=== PATIENT | female | born 1950 | race Caucasian/White ===

== ENCOUNTER 2024-10-02 11:02 | Outpatient (AMB) | payer MEDICARE, SELFPAY ==
--- NOTE | 2024-10-02 11:05 | MHC.OFFVIS ---
Vital Signs 10/02/24 11:13 Height 5 ft 2 in Weight 122 lb 8 oz BMI 22.4 BP 120/70 Blood Pressure Location Lt brachial Position Sitting Pulse 78 Pulse Source Pulse Oximeter Pulse Oximetry (%) 95 Oxygen Delivery Method Room Air Intake Visit Reasons: ENP-Parasomnia / Snoring ? sleep disorder Intake Note: Patient presents for a new patient evaluation for Parasomnia and snoring. Sexual Assault Social Worker Required: No Accompanied by: Spouse Allergies erythromycin base Allergy (Verified 10/02/24 11:12) Unknown Medication List - Last Reconciled 10/02/24 by Ced Coley PA-C albuterol sulfate 90 mcg/actuation (Ventolin HFA) 2 puffs inhalation Q6H PRN calcium carbonate-vitamin D3 600 mg-5 mcg (200 unit) (Calcium 600 + D(3)) 1 cap PO DAILY cholecalciferol (vitamin D3) 25 mcg PO DAILY HPI Comments Details: 73 year old female with history of abnormal sleep behaviors Abnormal sleep behavior she wakes up yelling at her , pommels him, punching, kicking behavior. He asks her to stop and she does, it is not related to disagreements. She has a good diet, exercises daily, meditates, Sees a medical therapist, [place] once a month. Denies any major stresses. March 2024, 33 year old nephew passed, tongue, neck, lungs, metatastic cancer, he was a nurse, she has been going to grief counseling. When she can't sleep she goes into the other room and does mindful exercises stretches in the middle of night, and then is able to fall asleep. RLS? PLMD? REM behavior, most likely. Buzzing, she stretches then they subside, +numbness and tingling. Bedtime is 10pm, and by midnight, and wakes up at 2am usually b/c the legs are uncomfortable and she wakes up kicking and thrashing. Snuggling helps her to fall asleep in his wing . Denies electric shock-like sensation, cramps or spasms. Does not take any medicine to sleep, including melatonin. Denies falls and injuries, sciatic. Osteoporosis has improved, per [employer]: was taking : risedronate- now she has Osteopenia. Arthritis. Sleep Study, in lab. Magnesium?/ B6 - Pyridine B12- Nerves/ Valerian? Acupuncture? PFSH Medical History Sessile colonic polyp Recurrent sinusitis Osteoporosis Hyperlipidemia History of shingles Diverticulosis large intestine w/o perforation or abscess w/bleeding Deviated septum Chondromalacia of right knee Benign positional vertigo Arthritis of right hand Surgical History S/P ACL repair Status post correction of deviated nasal septum H/O medial meniscus repair of right knee Family History Mother Breast cancer Social History Alcohol intake: current Patient Tobacco Use Status: Never used Tobacco Physical Exam Vital Signs: Last Vital Signs Pulse 78 10/02/24 11:13 BP 120/70 10/02/24 11:13 Pulse Ox 95 10/02/24 11:13 Oxygen Delivery Method Room Air 10/02/24 11:13 BMI result Body Mass Index 22.4 Const General: cooperative, comfortable and no acute distress Nutritional Appearance: average body habitus and thin Orientation/consciousness: patient oriented x3 Eyes Pupils: Equal, round and reactive pupils present Neck Neck: Yes other (ROM is good) Resp Effort & Inspection: normal respiratory effort and able to speak in complete sentences Neuro General: patient oriented x3 and moves all extremities Cranial nerves: Yes CN's II-XII intact bilaterally, Yes Facial sensation intact/muscles of mastication intact, Yes Equal, round and reactive pupils present, Yes Normal accommodation reflex present, Yes Bilaterally intact EOM present, Yes Nystagmus not present, Yes Normal facial strength present, Yes Midline tongue present, Yes Ability to bilaterally rotate head present and Yes Ability to bilaterally elevate shoulders present Cognition (Neuro): normal cognition Gait exam (Neuro): Normal gait present Motor exam (neuro): 5/5 motor strength present throughout, Pronator motor function not present, no tremor noted, Normal motor muscle tone present throughout and Abnormal motor strength present (RLE weaker than LLE) Deep tendon reflexes (DTR's): Right triceps reflex intensity grade: 2+, Left triceps reflex intensity grade: 2+, Rt Biceps (C5, C6): 2+, Left biceps reflex intensity grade: 2+, Right brachioradialis reflex intensity grade: 2+, Left brachioradialis reflex intensity grade: 2+, Right patellar reflex intensity grade: 2+, Left patellar reflex intensity grade: 2+, Right ankle reflex intensity grade: 2+ and Left ankle reflex intensity grade: 2+ Psych Appearance: grossly normal Mental Status: mental status grossly normal Speech and movement: Normal speech and movement present Affect: normal affect Attitude: cooperative Thought process: Normal thought process present Thought content: Normal thought content present Insight: Good insight present (Psych) Judgement: Good judgement present (Psych) Results Reviewed Results Reviewed: Notes from [facility] in [place] - Consultation from DR. Roe Burt Sep 2024 CBC normal MCV of 98 normal electrolytes, glucose 102, normal BUN and creatinine ca, alb, LFTS and TSH, per note. HLD Cholesterol is 257m /tri 172, HDL 49, LDL of 176 TSH was 2.85 Acyclovir / Valcyclovir PRN HSV 2 Assessment & Plan Assessment & Plan (1) Periodic limb movements of sleep: Code(s): G47.61 - Periodic limb movement disorder Category: Medical (2) RLS (restless legs syndrome): Code(s): G25.81 - Restless legs syndrome Category: Medical (3) Fatigue due to sleep pattern disturbance: Code(s): R53.83 - Other fatigue; G47.9 - Sleep disorder, unspecified Category: Medical Plan RLS - PLMD? In lab sleep study Labs: B12/ Folate / MMA/ Homocysteine/ Vit D- she takes every other / Iron? Magnesium? Abnormal Sleep patterns and excessive Daytime Fatigue: Continue taking vitamins, as prescribed, stretching, exercise daily and walking, will focus on nutritional deficiencies after in Lab sleep study. Future consideration: Acupuncture? Gabapentin, or Ropinorole next visit. F/U in 3 months. Orders: Orders RT PSG in-lab sleep study Today G25.81 - Restless legs syndrome, G47.61 - Periodic limb movement disorder, G47.9 - Sleep disorder, unspecified, R53.83 - Other fatigue Coding Level of Care Code New Pt Level 4 (82047) Diagnoses Periodic limb movements of sleep G47.61 RLS (restless legs syndrome) G25.81 Fatigue due to sleep pattern disturbance R53.83; G47.9 Time Spent (min) 45 Comment RLS/ PLMD/ Abnormal Sleep behavior Sleep Questionnaire Difficulty falling asleep: Yes Difficulty staying asleep?: Yes Number of arousals: varies 1-2x - multiple Snoring: Yes (loudly) Witnessed apneas: No Gasping arousals: No Nocturia: No GERD: No Vivid dreams: Yes Acting out dreams: Yes (Punching, kicking .) Abnormal behavior in sleep: Yes (Screaming loudly.) Abnormal movements in sleep: Yes (Denies ) Morning headaches: No Excessive daytime sleepiness: Yes Daytime naps: Yes (usually meditates and falls asleep 45min.) Restless legs: Yes (Buzzing, ) Hallucinations: Yes (Gargoyle like faces 2x.) Sleep paralysis: No Drop attacks: No Sleep Study: No CPAP: No
[2024-10-02 11:13] VITALS: BP 120/70; PULSE 78; O2SAT 95; BMI 22.4
--- OUTSIDE RECORDS SUMMARY | 2024-10-02 13:12 | XMS_ITS | Continuity of Care Document ---
Author Organization [facility] Address [address] [place] [address]- Care Team Providers Care Kiln Tester Name Role Phone Nas JAY, Chip Willis Primary Care Physician [id number] Date(s): 09/24/24 - 10/01/24 KE[facility] Adult [address] [place] [address]- Attending Physician: Roe Burt MD Encounter Type: Office Visit Allergies, Adverse Reactions, Alerts Substance Criticality Severity Reaction Reaction Severity Status erythromycin Active Immunizations Given and Recorded Vaccine Date Status Refusal Reason influenza virus vaccine, inactivated 07/18/24 Darren rded influenza virus vaccine, inactivated 06/12/23 Darren rded influenza virus vaccine, inactivated 06/08/21 Darren rded influenza virus vaccine, inactivated 06/13/19 Darren rded influenza virus vaccine, inactivated 06/14/18 Give n influenza virus vaccine, inactivated 06/18/17 Darren rded influenza virus vaccine, inactivated 06/27/16 Darren rded influenza virus vaccine, inactivated 09/05/09 Darren rded SARS-CoV-2(COVID-19)mRNA-LNP vac([id number]) 07/02/24 Recorded SARS-CoV-2(COVID-19)mRNA-LNP vac([id number]) 06/20/23 Recorded [id number] 12y+ bivalent booster vax 07/01/22 Recorded SARS-CoV-2 mRNA ([id number]) vax 01/04/22 Recorded SARS-CoV-2 (COVID-19) mRNA BNT-162b2 vac 06/15/21 Recorded SARS-CoV-2 (COVID-19) mRNA BNT-162b2 vac 12/05/20 Recorded SARS-CoV-2 (COVID-19) mRNA BNT-162b2 vac 11/14/20 Recorded zoster vaccine, inactivated 07/07/20 Recorded Influenza Virus Vaccine (oldterm) 06/06/20 Recorde d pneumococcal 13-valent vaccine 11/10/18 Given tetanus/diphtheria/pertussis, acel(Tdap) 11/06/15 Recorded pneumococcal 23-valent vaccine 07/24/10 Recorded Medications Calcium And Vitamin D Combination By Mouth, 0 Refills, Maintenance, 01/22/19 9:25:24 AM EDT Start Date: 01/22/19 Status: Ordered Repeat number: 1 Magnesium Carbonate = 54 mg, By Mouth, Daily, 0 Refills, Maintenance, 06/18/22 1:06:00 PM EDT, Partial fill upon patientrequest if the prescription is for a schedule II opioid drug. Start Date: 06/18/22 Status: Ordered Repeat number: 1 Mucinex 600 mg oral tablet, extended release See Instructions, 1 tablet By Mouth Every 12 hours as needed for cough and chest congestion. Swallow extended-release tablets whole; do not chew or crush, # 10 tablet, 0 Refills, Maintenance, 03/28/2410:14:00 AM EDT, ER Tablet, [facility]/pharmacy #[id number], Partial fill upon patient request if the prescription is for a schedule II opioid drug., 155, cm, 01/30/24 9:46:00 EDT, Height Start Date: 03/28/24 Status: Ordered Quantity: 10.0 Unit: tablet Repeat number: 1 Indication: COVID-19 Multi Vitamin+ 0 Refills, Maintenance, 11/16/17 5:14:59 PM EST Start Date: 11/16/17 Status: Ordered Repeat number: 1 ProAir HFA 90 mcg/inh inhalation aerosol with adapter 2, puffs, Inhalation, Every 6 hours, PRN, # 8.5 Gm, Refills 0, Tot. Refills 0, Maintenance, 03/28/2410:14:00 AM EDT, Aerosol, Route to Pharmacy Electronically, [id number], [facility]/pharmacy #[id number], 155, cm, 01/30/24 9:46:00 EDT, Height Start Date: 03/28/24 Status: Ordered Quantity: 8.5 Unit: g Repeat number: 1 Indication: COVID-19 Vitamin D3 1000 intl units oral capsule 1 capsule = 25 mcg, By Mouth, Daily, 0 Refills, Maintenance, 05/01/21 1:10:00 PM EDT, Partial fill upon patient request if the prescription is for a schedule II opioid drug. Start Date: 05/01/21 Status: Ordered Repeat number: 1 Problem List Condition Confirmation Course Effective Dates Status H ealth Status Informant Arthritis of right hand Confirmed Active Benign positional vertigo Confirmed Active Chondromalacia of knee right 1 Confirmed Active Deviated septum Confirmed Active Diverticulosis large intestine w/o perforation or abscess w/bleeding Confirmed Active History of shingles Confirmed Active H/O medial meniscus repair of right knee Confirmed 09/28/04 Active HLD (hyperlipidemia) Confirmed Active Osteoporosis Confirmed Active Sessile colonic polyp Confirmed Active Recurrent sinusitis Confirmed Active 1grade 3-4 Vital Signs Most recent to oldest [Reference Range]: 1 Height 155.0 cm (09/24/24 2:11 PM) Weight 55.5 kg (09/24/24 2:11 PM) Oxygen Saturation [94-100 %] 98 % (09/24/24 2:11 PM) Pulse Rate [55-90 bpm] 66 bpm (09/24/24 2:11 PM) Body Mass Index [18.5-24.99 kg/m2] 23.1 kg/m2 (09/24/24 2:11 PM) Blood Pressure [90-138/55-84 mm Hg] 122/ 64mm Hg (09/24/24 2:11 PM) Mode of Delivery (Oxygen) Room air (09/24/24 2:11 PM) Blood pressure sites Arm, right (09/24/24 2:11 PM) Weight Obtained Via Standing scale (09/24/24 2:11 PM) Social History Social History Type Response Smoking Status Never smoker entered on: 12/05/17 Sex Sex Representation Female (finding) Note * Radha Jackson: PERFORM Event Display: Patient Education/Instruction Authored Date: Ambulatory Adult Visit Summary [facility] Adult [facility] [address], [place] [id number] Name: DINA GRIFFIN : 1950?? Visit: 09/24/2024 14:03?? Ambulatory Visit Instructions ?? Your Care Team Primary Care Provider Chip Lovell MD? 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 Ok to change your acyclovir to Valacyclovir 500 mg twice a day for 3 days as needed for outbreaks. Recommend proceeding with the sleep clinic consultation. Scheduled Follow-Up Appointments Tuesday 9:00 AM EDT ?? With: [place] JAY, Tomeka Anne Where: [facility] [address] [place] [id number]- Status: Pending Follow-Up Appointments Follow Up with??Chip Lovell MD Why: As scheduled in March Where: [address] [place] [address]- Future Orders Collagen 1 C Telopeptide - Once, *Est. 01/28/24 +/- 60 days, Single or Recurring Future Order?? Renal Panel - Once, *Est. 01/28/24 +/- 60 days, Single or Recurring Future Order?? Vitamin D 25 Hydroxy Level - Once, *Est. 01/28/24 +/- 60 days, Future Order?? Medications The list below reflects the information in our records and provided by you today along with any changes made during this visit. Please continue your medications until treatment is completed or stopped by your provider. If this is different from the information you have or there are other questions,please contact the prescribing provider. What How Much When Why Instructions New ValACYclovir (valACYclovir 500 mg oral tablet) 1 tab(s) Oral Twice a day Duration: 3 Days Refills: 1 Pickup at [facility]/pharmacy #[id number] Unchanged Albuterol (ProAir HFA 90 mcg/ inh inhalation aerosol with adapter) 2 puff(s) Inhalation Every 6 hours as needed for Wheezing/Shortness of Breath COVID-19 Unchanged Calcium And Vitamin D Combination Oral Unchanged Cholecalciferol (Vitamin D3 1000 intl units oral capsule) 1 capsule Oral Daily Unchanged Guaifenesin (Mucinex 600 mg oral tablet, extended release) See instructions COVID-19 1 tablet By Mouth Every 12 hours ??as needed for cough and chest congestion. Swallow extended-release tablets whole; do not chew or crush ?? Unchanged Magnesium Carbonate 54 Milligram Oral Daily Unchanged Multivitamin (Multi Vitamin+) Pharmacy Information [facility]/pharmacy #[id number]: [address], [place] [phone] ?? What How Much When Comments Stop Taking Acyclovir (acyclovir 200 mg oral capsule) 1 capsule Oral 4 times a day as needed for Other As needed for outbreak ?? Medications and Immunizations Administered Medications Given During Visit No medications given during this visit.?? Allergies (NKA means No Known Allergies) erythromycin Common Emergency Awareness Tips IS IT A STROKE? Act FAST and Check for these signs: FACE Does the face look uneven? ARM Does one arm drift down? SPEECH Does their speech sound strange? TIME Call at any sign of stroke ?? Heart Attack Signs Chest discomfort: Most heart attacks involve discomfort in the center of the chest and lasts more than a few minutes, or goes away and comes back. It can feel like uncomfortable pressure, squeezing, fullness or pain. Discomfort in upper body: Symptoms can include pain or discomfort in one or both arms, back, neck, jaw or stomach. Shortness of breath: With or without discomfort. Other signs: Breaking out in a cold sweat, nausea, or lightheaded. Remember, MINUTES DO MATTER. If you experience any of these heart attack warning signs, call to get immediate medical attention! ?? Smoking can increase your chances of developing chronic health problems and can cause harmful effects to other family members in your house. If you smoke, you are strongly encouraged to quit. Please call [facility] at [phone] or [phone]-[employer] ([phone]) or log in to [email or web address] for referrals to smoking cessation programs. ?? The National Suicide Prevention Hotline is available 11/04 if you or someone you know needs to find a reason to keep living. By calling 3-242-013-ikvg (1907) you'll be connected to a skilled, trained counselor at a crisis center in your area. [facility] You can view and manage your care through the patient portal or by using a health care dmitri of your choosing. [employer] is a website that allows you to securely view your medical information including your hospital discharge summary, office visit summaries, medications and follow-up visits. You can also request appointments, renew medications, and request access to your medical information using a health care dmitri of your choosing, or just ask a question. You can enroll at [email or web address] or register during your next office visit. [facility], in keeping with [facility] guidance, no longer requires face masks for staff, patientsor visitors in most situations. Similiar to time spent indoors at other locations, there is the chance that you were exposed to repiratory viruses during your time with us (such as flu or COVID-19). If you develop symptoms concerning for a viral respiratory infection, please seek testing (and treatment if indicated) from your medical provider or home test kit. ?? Disclaimer: The information provided is of a general nature and is intended to be used in conjunction with the recommendations and advice of your health care practitioner. Every effort has been made to ensure that the information provided is accurate and complete at the time it is provided to you however, as your needs change, or, as new information becomes available, different or additional instructions may be required. ?? If you have questions, please consult with your primary care provider or pharmacist, as appropriate. This information is not intended to serve as substitution for assessment and evaluation by a qualified health care provider. If you do not have a primary care provider, you may find a [facility] provider by calling [facility] at [phone]. Patient Care team information Care Team Personnel Name: Chip Lovell MD Position: [facility] Physician - Primary Care Member Role: PCP Address: [address] [place] [address]- Telecom: Care Team Related Persons Name: BROOKE GRIFFIN Insurance Providers Guarantor name: DINA GABY Health Plan Information #: 1 Payer: KAREN ESCOBEDO Member Number: [id number] Policy Number: NA Group Number: [id number] Health Plan Information #: 2 Payer: KAREN ESCOBEDO Member Number: [id number] Policy Number: NA Group Number: [id number]
--- OUTSIDE RECORDS SUMMARY | 2024-10-02 13:12 | XMS_ITS | Continuity of Care Document ---
Author Organization [facility] En[facility] Address [address] [place] [address]- Care Team Providers Care Second Miller Name Role Phone Nas JAY, Chip Willis Primary Care Physician Encounter [facility] Date(s): 08/08/24 - 09/07/24 KEITH Eagle Adult [address] [place] [address]- Encounter Type: Triage Allergies, Adverse Reactions, Alerts Substance Criticality Severity [...] virus vaccine, inactivated 09/05/09 Darren rded SARS-CoV-2(COVID-19)mRNA-LNP vac([id number]) 07/02/24 Recorded SARS-CoV-2(COVID-19)mRNA-LNP vac([id number]) 06/20/23 Recorded [id number] 12y+ bivalent booster vax 07/01/22 Recorded SARS-CoV-2 mRNA ([id number]) vax 01/04/22 Recorded SARS-CoV-2 (COVID-19) mRNA BNT-162b2 vac 06/15/21 Recorded SARS-CoV-2 (COVID-19) mRNA BNT-162b2 vac 12/05/20 Recorded SARS-CoV-2 (COVID-19) mRNA BNT-162b2 vac 11/14/20 Recorded zoster vaccine, inactivated 07/07/20 Recorded Influenza Virus Vaccine (oldterm) 06/06/20 Recorde d pneumococcal 13-valent vaccine 11/10/18 Given tetanus/diphtheria/pertussis, acel(Tdap) 11/06/15 Recorded pneumococcal 23-valent vaccine 07/24/10 Recorded Medications acyclovir 200 mg oral capsule 1 capsule = 200 mg, By Mouth, 4 times a day, PRN Other, As needed for outbreak, # 40 capsule, 2 Refills, Acute 04/12/25 5:23:00 AM EDT, 04/12/24 5:23:00 AM EDT, Capsule, [id number], Partial fill upon patient request if the prescription is for a schedule II opioid drug., 155, cm, 03/28/24 10:15:00 EDT, Height Start Date: 04/12/24 Stop Date: 04/12/25 Status: Ordered Quantity: 40.0 Unit: capsule Repeat number: 3 Calcium And Vitamin D Combination By Mouth, [...] Refills, Maintenance, 03/28/2410:14:00 AM EDT, ER Tablet, [id number], Partial fill upon patient request if [...] AM EDT, Aerosol, Route to Pharmacy Electronically, [id number], [facility]/pharmacy #[id number], 155, cm, 01/30/24 9:46:00 EDT, Height [...] Active Recurrent sinusitis Confirmed Active 1grade 3-4 Social History Social History Type Response Smoking Status Never smoker entered on: 12/05/17 Sex Sex Representation Female (finding) Patient Care team information Care Team Personnel Name: Chip Lovell MD Position: [facility] Physician - Primary Care Member Role: PCP Address: [address] [place] [phone]- Telecom: Care Team Related Persons Name: BROOKE GRIFFIN Insurance Providers Guarantor name: DINA GRIFFIN Health Plan Information #: 1 Payer: KAREN ESCOBEDO Member Number: NA Policy Number: NA Group Number: NA
--- OUTSIDE RECORDS SUMMARY | 2024-10-02 13:12 | XMS_ITS | Continuity of Care Document ---
Author Organization [facility] Address [address] [place] [address]- Care Team Providers Care Financial Dealers Name Role Phone Nas JAY, Chip Willis Primary Care Phys[id number] Date(s[facility] 08/09/24 - 09/08/24 KEITH Eagle Adult [address] [place] [address]- Encounter Type: Triage Allergies, Adverse Reactions, Alerts [...] virus vaccine, inactivated 09/05/09 Darren rded SARS-CoV-2(COVID-19)mRNA-LNP vac([id number]) 07/02/24 Recorded SARS-CoV-2(COVID-19)mRNA-LNP vac([id number]) 06/20/23 Recorded [id number] 12y+ bivalent booster vax 07/01/22 Recorded SARS-CoV-2 mRNA ([id number]) vax 01/04/22 Recorded SARS-CoV-2 (COVID-19) mRNA BNT-162b2 [...] AM EDT, 04/12/24 5:23:00 AM EDT, Capsule, [facility]/pharmacy #[id number], Partial fill upon patient request if [...] Refills, Maintenance, 03/28/2410:14:00 AM EDT, ER Tablet, [facility]/pharmacy #[id number], Partial fill upon patient request if [...] AM EDT, Aerosol, Route to Pharmacy Electronically, [id number], [facility]/pharmacy #[id number], 155, cm, 01/30/24 9:46:00 EDT, Height [...] Team Personnel Name: Chip Lovell MD Position: [facility] Physician - Primary Care Member Role: PCP Address: [address] [place] [address]- Telecom: Care Team Related Persons Name: BROOKE GRIFFIN Insurance Providers Guarantor name: DINA GRIFFIN Health Plan Information #: 1 Payer: KAREN ESCOBEDO Member Number: NA Policy Number: NA Group Number: NA
--- OUTSIDE RECORDS SUMMARY | 2024-10-02 13:12 | XMS_ITS | Continuity of Care Document ---
Author Organization [facility] [place] Address [address] [place] [address]- Care Team Providers Care Staff Internist Office Based Only Name Role Phone Chip Lovell MD Primary Care Physician [id number] Date(s): 09/07/24 - 09/14/24 [facility] [place] [address] [place] [address]- Encounter Diagnosis Parasomnia(Discharge Diagnosis) - 09/11/24 Right shoulder pain(Discharge Diagnosis) - 09/11/24 Anxiety(Discharge Diagnosis) - 09/11/24 HLD (hyperlipidemia)(Discharge Diagnosis) - 09/11/24 Osteoporosis(Discharge Diagnosis) - 09/11/24 Attending Physician: Chip Lovell MD Encounter Type: Office Visit Allergies, Adverse [...] virus vaccine, inactivated 09/05/09 Darren rded SARS-CoV-2(COVID-19)mRNA-LNP vac([id number]) 07/02/24 Recorded SARS-CoV-2(COVID-19)mRNA-LNP vac([id number]) 06/20/23 Recorded [id number] 12y+ bivalent booster vax 07/01/22 Recorded SARS-CoV-2 mRNA (crazbph-qwtc-nvwtg) vax 01/04/22 Recorded SARS-CoV-2 (COVID-19) mRNA BNT-162b2 [...] AM EDT, 04/12/24 5:23:00 AM EDT, Capsule, [facility]/pharmacy #[id number], Partial fill upon patient request if [...] AM EDT, Aerosol, Route to Pharmacy Electronically, [id number], [facility]/pharmacy #[id number], 155, cm, 01/30/24 9:46:00 EDT, Height [...] Active Recurrent sinusitis Confirmed Active 1grade 3-4 Diagnosis Diagnosis Type Effective Dates Health Status Clinical Service Informant Parasomnia Discharge Diagnosis 09/11/24 Right shoulder pain Discharge Diagnosis 09/11/24 Anxiety Discharge Diagnosis 09/11/24 HLD (hyperlipidemia) Discharge Diagnosis 09/11/24 Osteoporosis Discharge Diagnosis 09/11/24 Vital Signs Most recent to oldest [Reference Range]: 1 Height 155.0 cm (09/07/24 9:35 AM) Weight 54.5 kg (09/07/24 9:35 AM) Oxygen Saturation [94-100 %] 98 % (09/07/24 9:35 AM) Pulse Rate [55-90 bpm] 84 bpm (09/07/24 9:35 AM) Body Mass Index [18.5-24.99 kg/m2] 22.68 kg/m2 (09/07/24 9:35 AM) Blood Pressure [90-138/55-84 mm Hg] 131/ 69mm Hg (09/07/24 9:35 AM) Mode of Delivery (Oxygen) Room air (09/07/24 9:35 AM) Blood pressure sites Arm, right (09/07/24 9:35 AM) Weight Obtained Via Standing scale (09/07/24 9:35 AM) Social History Social History Type Response Smoking Status Never smoker entered on: 12/05/17 Sex Sex Representation Female (finding) Patient Care team information Care Team Personnel Name: Nas JAY, Chip Willis Position: S Physician - Primary Care Member Role: PCP Address: [address] [place] [address] Telecom: Care Team Related Persons Name: BROOKE GRIFFIN Insurance Providers Guarantor name: DINA GRIFFIN Health Plan Information #: 1 Payer: KAREN FIGUEROA ADV Member Number: [id number] Policy Number: NA Group Number: [id number] Health Plan Information #: 2 Payer: KAREN FIGUEROA ADV Member Number: [id number] Policy Number: NA Group Number: [id number]
--- OUTSIDE RECORDS SUMMARY | 2024-10-02 13:13 | XMS_ITS | Patient Health Record ---
[facility] [place] Address [address] [place] [address] Care Team Providers Care Boiler Plant Operator Name Role Phone Nas JAY, Chip Primary Care Provider Flora Munguia Unavailable [phone] EmreJuan Jik Unavailable [phone] Allergies Allergen (clinical drug ingredient) Drug/Non Drug Allergy documented on EMR Reaction Allergy Type Onset Date Status erythromycin Erythromycin diarrhea/vomiti ng Drug Allergy Active Reason For Referral No Information Medications Medication SIG (Take, Route, Frequency, Duration) Notes Start Date End Date Status Custom Orthotics as directed 04/30/2021 Active Risedronate Sodium 35 MG TAKE 1 TABLET B Y MOUTH EVERY WEEK WITH 6-8 OUNCES OF PLAIN WATER, AT LEAST 30 MINUTES BEFORE FIRST FOOD, BEVERAGE, OR MEDICATION OF THE DAY Oral for 84 Active Nightsplint . . . AFO - L1930 for . Active Immunizations Vaccine Route Administration Date Status Comme nts COVID-19 Pfizer BioNTech Vaccine Unknown 12/05/2020 Adm inistered 1st 11/14/20 Social History Tobacco Use: Social History Observation Description Date Details (start date - stop date) Never Smoker NA - NA Tobacco use other than smoking: Question Answer Notes Are you an other tobacco user? No Tobacco Control (Standard) Question Answer Notes Tobacco use: Nonsmoker AUDIT-C (Standard) Question Answer Notes Did you have a drink contain ing alcohol in the past year? Yes How often did you have six o r more drinks on one occasion in the past year? Declined to specify (0 point) How many drinks did you have on a typical day when you were drinking in the past year? Declined to specify (0 point) How often did you have a dri nk containing alcohol in the past year? Daily or almost daily (4 points) Points 4 Interpretation Positive Problems Problem Type SNOMED Code ICD Code Onset Dates Problem Status W/U Status Risk Notes Problem Plantar fascial fibromatosis (60841454) Plantar fascial fibromatosis (M72.2) Active confirmed Encounters Encounter Location Date Provider Diagnosis [facility] [place] [address] [place] [address] 07/31/2024 Trent Andrea Plan Of Treatment Next Appt Details Provider Name:Flora desai, 10/15/2024 10:30:00 AM, [address] [facility], [place], [address], Insurance Providers Payer Name Payer Address Payer Phone Subscriber Number Group Number Insured Name Patient Relationship to Insured Coverage Start Date Coverage End Date [employer] Medicare Adv-[id number] [address] [address] [place] [phone] [id number] Caitlin Vides Self - patient is the insured Medical (General) History Medical History History ICD Code Diverticulosis Headaches/Migraines Osteoporosis Sinus conditions Mumps Chicken pox covid-19 Measles Surgical History Surgery Date(Month/Year) A.C.L. Repair Meniscus repair
--- OUTSIDE RECORDS SUMMARY | 2024-10-02 13:13 | XMS_ITS ---
Author Organization [facility] Address [address] [facility] [place] [address] Care Team Providers Care Shot Peen Operator Name Role Phone Chip Lovell MD Primary Care Provider Unava ilable Flora Tatum Unavailable [phone] Trent Andrea Unavailable [phone] REASON FOR VISIT ON Encounters Encounter Location Date Provider Diagnosis [facility] [place] [address] [place] [address] 07/31/2024 Trent Andrea Plan Of Treatment Next Appt Details Provider Name:Flora desai, 10/15/2024 10:30:00 AM, [address] [facility], [place], [address], Progress Notes * Alisha GRIFFINOB:1950 (73 yo F)Acc No.[id number]:07/31/2024 Patient:?Caitlin GRIFFIN :1950???Age:73 Y???Sex:Female Address:[address], [place], [address] * true * Date:? Generated for Sofiyai gabby/Dario/eTransmitting on:?10/02/2024 01:12 PM EST
== END 2024-10-02 12:15 | disposition home or self-care (01) ==
PROVIDERS: PCP Family Medicine; Visit Provider Physician Assistant Medical
DX: G47.61 Periodic limb movement disorder (principal); G25.81 Restless legs syndrome; R53.83 Other fatigue; G47.9 Sleep disorder, unspecified
CPT/HCPCS: 99204

== ENCOUNTER → 2024-10-02 11:02 | Outpatient (BNVA) | payer MEDICARE, SELFPAY | PROVIDERS: PCP Family Medicine; Visit Provider Physician Assistant Medical | DX: G47.61 Periodic limb movement disorder (principal); G25.81 Restless legs syndrome; G47.9 Sleep disorder, unspecified; R53.83 Other fatigue | CPT/HCPCS: 99202 ==

== ENCOUNTER → 2024-10-16 20:30 | Outpatient (REF) | payer MEDICARE, SELFPAY | LOC: HO.SL 20:30 | PROVIDERS: PCP Family Medicine; Visit Provider Physician Assistant Medical | DX: R53.83 Other fatigue (principal); G47.9 Sleep disorder, unspecified; G25.81 Restless legs syndrome; G47.61 Periodic limb movement disorder | CPT/HCPCS: 95810 ==

== ENCOUNTER → 2024-10-16 20:30 | Outpatient (BNV) | payer MEDICARE, SELFPAY | PROVIDERS: PCP Family Medicine; Visit Provider Psychiatry & Neurology Neurology | DX: R53.83 Other fatigue (principal); G47.9 Sleep disorder, unspecified; G25.81 Restless legs syndrome; G47.61 Periodic limb movement disorder | CPT/HCPCS: 95810 ==

== ENCOUNTER 2025-01-01 10:32 | Outpatient (REF) | payer MEDICARE, SELFPAY ==
[2025-01-01 19:06] LABS: Ferritin 550 ng/mL (10-250)
== END 2025-01-01 10:33 | disposition home or self-care (01) ==
LOC: HO.HKASLDS 10:32
PROVIDERS: PCP Family Medicine; Visit Provider Physician Assistant Medical
DX: G25.81 Restless legs syndrome (principal); G47.61 Periodic limb movement disorder
CPT/HCPCS: 36415; 82728; 99212

== ENCOUNTER 2025-01-01 10:32 | Outpatient (AMB) | payer MEDICARE, SELFPAY ==
[2025-01-01 10:42] VITALS: BP 122/70; PULSE 69; O2SAT 96; BMI 21.4
--- NOTE | 2025-01-01 10:42 | MHC.OFFVIS ---
Vital Signs 01/01/25 10:42 Height 5 ft 2 in Weight 117 lb 4 oz BMI 21.4 BP 122/70 Blood Pressure Location Rt brachial Position Sitting Pulse 69 Pulse Source Pulse Oximeter Pulse Oximetry (%) 96 Oxygen Delivery Method Room Air Intake Visit Reasons: 3mon follow up Intake Note: Patient presents follow up for snoring/sleep disturbance. PSG in chart done on 10/16/24. Allergies erythromycin base Allergy (Verified 01/01/25 10:44) Unknown HPI Comments Details: 74 year old female with history of abnormal sleep behavior follow up for review of PSG. PSG was significant for Mild Sleep Apnea AHI was 8 and REM AHI was 34, with Oxygen Kemal to 81%. She had frequent limb movements leading to periodic arousals. She was started on cPAP [id number]. She recently had diverticulitis 3 weeks ago, was started on antibiotics and now she is doing much better. She has not been waking up and yelling at her since starting the CPAP therapy she sleeps very peacefully through the night and although the mask is not very pleasant, she is able to tolerate the noise and straps. Bill her also is pleased with the diminished snoring and her ability to sleep through the night. She can sleep on her side and on her back easily. She has a good diet, exercises daily, meditates and sees a medical therapist once a month. Though she denies any major stressors, her 33 year old nephew due to metatastic lung cancer in March 2024. RLS: She says the buzzing bilaterally in her legs gets better if she stretches. She c/o numbness, tingling and an uncomfortable sensation when she goes to bed around 10pm. She denies electric shock-like sensation, cramps or spasms and does not take any otc meds to fall asleep, including melatonin. She denies falls, injuries, sciatica or MVA. She has Osteoporosis which has improved, per Seasonal Retail Merchandiser she was taking Risedronate- now she has Osteopenia and occasional arthritic joint pains. [facility] Medical History Sessile colonic polyp Recurrent sinusitis Osteoporosis Hyperlipidemia History of shingles Diverticulosis large intestine w/o perforation or abscess w/bleeding Deviated septum Chondromalacia of right knee Benign positional vertigo Arthritis of right hand Surgical History S/P ACL repair Status post correction of deviated nasal septum H/O medial meniscus repair of right knee Family History Mother Breast cancer Social History Alcohol intake: current Patient Tobacco Use Status: Never used Tobacco Physical Exam Vital Signs: Last Vital Signs Pulse 69 01/01/25 10:42 BP 122/70 01/01/25 10:42 Pulse Ox 96 01/01/25 10:42 Oxygen Delivery Method Room Air 01/01/25 10:42 BMI result Body Mass Index 21.4 Const General: cooperative, comfortable and no acute distress Nutritional Appearance: average body habitus and thin Orientation/consciousness: patient oriented x3 Eyes Pupils: Equal, round and reactive pupils present Neck Neck: Yes other (ROM is good) Resp Effort & Inspection: normal respiratory effort and able to speak in complete sentences Neuro General: patient oriented x3 and moves all extremities Cranial nerves: Yes CN's II-XII intact bilaterally, Yes Facial sensation intact/muscles of mastication intact, Yes Equal, round and reactive pupils present, Yes Normal accommodation reflex present, Yes Bilaterally intact EOM present, Yes Nystagmus not present, Yes Normal facial strength present, Yes Midline tongue present, Yes Ability to bilaterally rotate head present and Yes Ability to bilaterally elevate shoulders present Cognition (Neuro): normal cognition Gait exam (Neuro): Normal gait present Motor exam (neuro): 5/5 motor strength present throughout, Pronator motor function not present, no tremor noted, Normal motor muscle tone present throughout and Abnormal motor strength present (RLE weaker than LLE) Deep tendon reflexes (DTR's): Right triceps reflex intensity grade: 2+, Left triceps reflex intensity grade: 2+, Rt Biceps (C5, C6): 2+, Left biceps reflex intensity grade: 2+, Right brachioradialis reflex intensity grade: 2+, Left brachioradialis reflex intensity grade: 2+, Right patellar reflex intensity grade: 2+, Left patellar reflex intensity grade: 2+, Right ankle reflex intensity grade: 2+ and Left ankle reflex intensity grade: 2+ Psych Appearance: grossly normal Mental Status: mental status grossly normal Speech and movement: Normal speech and movement present Affect: normal affect Attitude: cooperative Thought process: Normal thought process present Thought content: Normal thought content present Insight: Good insight present (Psych) Judgement: Good judgement present (Psych) Results Reviewed Results Reviewed: PSG was significant for Mild Sleep Apnea AHI was 8 and REM AHI was 34, with Oxygen Kemal to 81%. She had frequent limb movements leading to periodic arousals. Labs reviewed. Assessment & Plan Assessment & Plan (1) RLS (restless legs syndrome): Code(s): G25.81 - Restless legs syndrome Category: Medical (2) Periodic limb movements of sleep: Code(s): G47.61 - Periodic limb movement disorder Category: Medical Plan PLMD check ferrittin all other labs were normal. RLS try using Magnilife restless cream daily at night and if this is not helping we will consider a prescription medication such as a dopamine agonist: Ropinorole or Gabapentin. Will f/u in 3 months for compliance of CPAP. Orders: Orders Ferritin Today G25.81 - Restless legs syndrome, G47.61 - Periodic limb movement disorder Patient Instructions: Sleep Hygiene provided: set a scheduled bedtime and wake time to help regulate the circadian rhythm and balance the release of pituitary hormones. Sleep in a dark room, temperatures below 68 degrees, and no devices n bed. Limit caffeinated products 6 hours prior to bed, and limit fluids 2-4 hours prior to bed. Gentle night yoga, diffusing essential oils, and playing soft music can be relaxing. RLS use topically Magnilife or Rest Less Leg Cream of your choice, will f/u with Ferritin levels, foods rich in Iron can also be supportive. Will consider a dopamine agonist if Ferritin levels are not improved or significantly low at next appt. Coding Level of Care Code Est Pt Level 4 (17943) Diagnoses RLS (restless legs syndrome) G25.81 Periodic limb movements of sleep G47.61 Time Spent (min) 30 Comment F/U RLS
--- OUTSIDE RECORDS SUMMARY | 2025-01-01 12:38 | XMS_ITS | Continuity of Care Document ---
Author Organization [facility] Address [address] [place] [address]- Care Team Providers Care Earth Science Professor Name Role Phone Chip Lovell MD Primary Care Physician [phone] [id number] Date(s): 09/21/24 - 12/27/[address] [address]- Attending Physician: [place] JAY, Tomeka Anne Admitting Physician: Tomeka Boyle MD Referring Physician: Chip Lovell MD Encounter Type: Pre-OutPatient One Time Allergies, Adverse Reactions, Alerts Substance Criticality Severity [...] virus vaccine, inactivated 09/05/09 Darren rded SARS-CoV-2(COVID-19)mRNA-LNP vac(itc917) 07/02/24 Recorded SARS-CoV-2(COVID-19)mRNA-LNP vac(txr137) 06/20/23 Recorded [id number] 12y+ bivalent booster vax 07/01/22 Recorded SARS-CoV-2 mRNA (nyunwnp-niog-otqtj) vax 01/04/22 Recorded SARS-CoV-2 (COVID-19) mRNA BNT-162b2 vac 06/15/21 Recorded SARS-CoV-2 (COVID-19) mRNA BNT-162b2 vac 12/05/20 Recorded SARS-CoV-2 (COVID-19) mRNA BNT-162b2 vac 11/14/20 Recorded zoster vaccine, inactivated 07/07/20 Recorded Influenza Virus Vaccine (oldterm) 06/06/20 Recorde d pneumococcal 13-valent vaccine 11/10/18 Given tetanus/diphtheria/pertussis, acel(Tdap) 11/06/15 Recorded pneumococcal 23-valent vaccine 07/24/10 Recorded Medications Augmentin 875 mg-125 mg oral tablet 1 tablet, By Mouth, Every 12 hours, # 14 tablet, 0 Refills, Maintenance, 12/21/24 11:35:00 AM EDT, Tablet, [id number], Partial fill upon patient request if the prescription is for a schedule IIopioid drug., 155, cm, 12/21/24 11:13:00 EDT, Height Start Date: 12/21/24 Status: Ordered Quantity: 14.0 Unit: tablet Repeat number: 1 Calcium And Vitamin D Combination By Mouth, 0 Refills, Maintenance, 01/22/19 9:25:24 AM EDT Start Date: 01/22/19 Status: Ordered Repeat number: 1 Multi Vitamin+ 0 Refills, Maintenance, 11/16/17 5:14:59 PM EST Start Date: 11/16/17 Status: Ordered Repeat number: 1 Vitamin D3 1000 intl units oral capsule [...] Team Personnel Name: Chip Lovell MD Position: [facility] Physician - Primary Care Member Role: PCP Address: [address] [place] [id number] Telecom: Care Team Related Persons Name: BROOKE GRIFFIN Insurance Providers Guarantor name: DINA GRIFFIN Health Plan Information #: 1 Payer: [employer] PPO [employer] ADV Member Number: [id number] Policy Number: NA Group Number: [id number] Health Plan Information #: 2 Payer: [employer] PPO [employer] ADV Member Number: [id number] Policy Number: NA Group Number: NA
--- OUTSIDE RECORDS SUMMARY | 2025-01-01 12:38 | XMS_ITS | Continuity of Care Document ---
Author Organization [facility] Address [address] [place] [address]- Care Team Providers Care Chemical Lab Technician Name Role Phone Nas JAY, Chip Willis Primary Care Physician Encounter [facility] Date(s): 11/29/24 - 12/29/[address] [id number] Attending Physician: Tamy Youssef Admitting Physician: Tamy Youssef Referring Physician: Admtr ArPat Encounter Type: Triage Allergies, Adverse Reactions, Alerts [...] virus vaccine, inactivated 09/05/09 Darren rded SARS-CoV-2(COVID-19)mRNA-LNP vac([id number]) 07/02/24 Recorded SARS-CoV-2(COVID-19)mRNA-LNP vac(pvi102) 06/20/23 Recorded [id number] 12y+ bivalent booster vax 07/01/22 Recorded SARS-CoV-2 mRNA (wxjckfu-aklk-vxitf) vax 01/04/22 Recorded SARS-CoV-2 (COVID-19) mRNA BNT-162b2 [...] Personnel Name: Nas JAY, Chip Willis Position: [facility] Physician - Primary Care Member Role: PCP Address: [address] [place] [address]- Telecom: Care Team Related Persons Name: BROOKE GRIFFIN Insurance Providers Guarantor name: DINA GRIFFIN [facility] Plan Information #: 1 Payer: KAREN ESCOBEDO Member Number: NA Policy Number: NA Group Number: NA
--- OUTSIDE RECORDS SUMMARY | 2025-01-01 12:38 | XMS_ITS | Continuity of Care Document ---
Author Organization [facility] [place] [facility] Address [address] [place] [address]- Care Team Providers Care Mortgage Closer Name Role Phone Nas JAY, Chip Willis Primary Care Physician [phone] [id number] Date[facility]s): 12/21/24 - 12/28/24 [facility] [place] [address] [place] [address]- Attending Physician: Severo Francis MD Encounter Type: Office Visit Allergies, Adverse [...] virus vaccine, inactivated 09/05/09 Darren rded SARS-CoV-2(COVID-19)mRNA-LNP vac(may914) 07/02/24 Recorded SARS-CoV-2(COVID-19)mRNA-LNP vac(swr484) 06/20/23 Recorded [id number]-PjZ-3rVON 12y+ bivalent booster vax 07/01/22 Recorded SARS-CoV-2 mRNA (qwbtqao-qciv-selcm) vax 01/04/22 Recorded SARS-CoV-2 (COVID-19) mRNA BNT-162b2 [...] oldest [Reference Range]: 1 Height 155.0 cm (12/21/24 11:13 AM) Weight 53.8 kg (12/21/24 11:13 AM) Oxygen Saturation [94-100 %] 99 % (12/21/24 11:13 AM) Pulse Rate [55-90 bpm] 80 bpm (12/21/24 11:13 AM) Body Mass Index [18.5-24.99 kg/m2] 22.39 kg/m2 (12/21/24 11:13 AM) Blood Pressure [90-138/55-84 mm Hg] 112/ 63mm Hg (12/21/24 11:13 AM) Temperature [96.8-100.4 DegF] 98.2 DegF (12/21/24 11:13 AM) Blood pressure sites Arm, left (12/21/24 11:13 AM) Temperature Route Oral (12/21/24 11:13 AM) Weight Obtained Via Standing scale (12/21/24 11:13 AM) Social History Social History Type Response Smoking Status Never smoker entered on: 12/05/17 Sex Sex Representation Female (finding) Patient Care team information Care Team Personnel Name: Nas JAY, Chip Willis Position: S Physician - Primary Care Member Role: PCP Address: [address] [place] [address] Telecom: Care Team Related Persons Name: BROOKE GRIFFIN Insurance Providers Guarantor name: DINA GRIFFIN Health Plan Information #: 1 Payer: KAREN FIGUEROA ADV Member Number: [id number] Policy Number: NA Group Number: NA Health Plan Information #: 2 Payer: KAREN FIGUEROA ADV Member Number: [id number] Policy Number: NA Group Number: NA
--- OUTSIDE RECORDS SUMMARY | 2025-01-01 12:38 | XMS_ITS ---
Author Organization [facility] Address [address] [place] [address] Care Team Providers Care Faucets Assembler Name Role Phone Chip Lovell MD Primary Care Provider Unava ilFlora Houser [phone] REASON FOR VISIT DPM orthotics 11/20/24 @ 10:15AM Encounters Encounter Location Date Provider Diagnosis [facility] [place] [address] [facility] [place] [address] 10/15/2024 Flora Tatum Plan Of Treatment No Information Progress Notes * Alisha GRIFFINOB:1950 (73 yo F)Acc No.[id number]:10/15/2024 Patient:?Caitlin GRIFFIN :1950???Age:73 Y???Sex:Female Address:[address], [place], [address] * true * Date:? Generated for Printi gabby/Dario/eTransmitting on:?01/01/2025 12:38 PM EDT
--- OUTSIDE RECORDS SUMMARY | 2025-01-01 12:38 | XMS_ITS | Patient Health Record ---
Author Organization [facility] [place] Address [address] [place] [address] Care Team Providers Care Electronic Science Teacher Name Role Phone Chip Lovell MD Primary Care Provider Gene TatumDenysen Unavailable [phone] Emre, Trent Unavailable [phone] Allergies Allergen (clinical drug ingredient) Drug/Non Drug Allergy documented on EMR Reaction Allergy Type Onset Date Status erythromycin Erythromycin diarrhea/vomiti ng Drug Allergy Active Reason For Referral No Information Medications Medication SIG (Take, Route, Frequency, Duration) Notes Start Date End Date Status Vitamin D Active Calcium Active Vitamin B6 Active Melatonin 5 MG 1 tablet in the even ing Orally Once a day Active Custom Orthotics as directed 04/30/2021 Not-Taking Nightsplint . . . AFO - L1930 for . Not-Taking Risedronate Sodium 35 MG TAKE 1 TABLET B Y MOUTH EVERY WEEK WITH 6-8 OUNCES OF PLAIN WATER, AT LEAST 30 MINUTES BEFORE FIRST FOOD, BEVERAGE, OR MEDICATION OF THE DAY Oral for 84 Not-Takin g Multivitamin Active Immunizations Vaccine Route Administration Date Status Comme nts COVID-19 Pfizer BioNTech Vaccine Unknown 12/05/2020 Adm inistered 1st 11/14/20 Social History Tobacco Use: Social History Observation Description Date Details (start date - stop date) Never Smoker NA - NA Tobacco use other than smoking: Question Answer Notes Are you an other tobacco user? No Tobacco Control (Standard) Question Answer Notes Tobacco use: Nonsmoker Additional Findings: Tobacco non-user Current no nsmoker AUDIT-C (Standard) Question Answer Notes Did you have a drink contain ing alcohol in the past year? Yes How often did you have a dri nk containing alcohol in the past year? Daily or almost daily (4 points) How many drinks did you have on a typical day when you were drinking in the past year? 1 or 2 drinks (0 point) How often did you have six o r more drinks on one occasion in the past year? Never (0 point) Points 4 Interpretation Positive Problems Problem Type SNOMED Code ICD Code Onset Dates Problem Status W/U Status Risk Notes Problem Plantar fascial fibromatosis (84911817) Plantar fascial fibromatosis (M72.2) Active confirmed Problem Plantar fascial fibromatosis (75367261) Plantar fasciitis, bilateral (M72.2) Active confirmed Vital Signs Heart Rate 56 /min 11/20/2024 Blood pressure diastolic 71 mm Hg 11/20/2024 Height 5ft 2in in 11/20/2024 Blood pressure systolic 122 mm Hg 11/20/2024 Weight 115 lbs 11/20/2024 BMI 21.03 kg/m2 11/20/2024 Encounters Encounter Location Date Provider Diagnosis [address] [address] 10/15/2024 Flora Tatum Pain in right foot M79.671 ; Plantar fasciitis, bilateral M72.2 ; Calcaneal spur, right foot M77.31 ; Other myositis of right foot M60.871 ; Bursitis of right foot M77.51 ; Pain in left foot M79.672 ; Calcaneal spur, left foot M77.32 ; Other myositis of left foot M60.872 and Bursitis of left foot M77.52 [facility] [address] 11/20/2024 Flora Tatum Pain in right foot M79.671 ; Plantar fasciitis, bilateral M72.2 ; Calcaneal spur, right foot M77.31 ; Pain in left foot M79.672 and Calcaneal spur, left foot M77.[address] [address] 07/31/2024 Trent [facility] [address] 10/03/2024 Flora Tatum [facility] [address] [place] [address] 10/15/2024 Flora Tatum Assessments Encounter Date Diagnosis (ICD Code) Assessment Notes Treatment Notes Treatment Clinical Notes Section Notes 10/15/2024 Pain in right foot (ICD-10 - M79.671) 11/20/2024 Pain in right foot (ICD-10 - M79.671) 11/20/2024 Plantar fasciitis, bilateral (ICD-10 - M72.2) 10/15/2024 Plantar fasciitis, bilateral (ICD-10 - M72.2) Patient Educated with: HEEL CORD STRETCHES.pdf (HEEL CORD STRETCHES.pdf) Patient Educated with: RICE THERAPY.pdf (RICE THERAPY.pdf) 11/20/2024 Calcaneal spur, right foot (ICD-10 - M77.31) 10/15/2024 Calcaneal spur, right foot (ICD-10 - M77.31) 11/20/2024 Pain in left foot (ICD-10 - M79.672) 11/20/2024 Calcaneal spur, left foot (ICD-10 - M77.32) 10/15/2024 Other myositis of right foot (ICD-10 - M60.871) 10/15/2024 Bursitis of right foot (ICD-10 - M77.51) 10/15/2024 Pain in left foot (ICD-10 - M79.672) 10/15/2024 Calcaneal spur, left foot (ICD-10 - M77.32) 10/15/2024 Other myositis of left foot (ICD-10 - M60.872) 10/15/2024 Bursitis of left foot (ICD-10 - M77.52) Plan Of Treatment Pending Test Test Name Order Date X ray : Foot, left 3V 10/15/2024 X ray : Foot, right 3V 10/15/2024 Insurance Providers Payer Name Payer Address Payer Phone Subscriber Number Group Number Insured Name Patient Relationship to Insured Coverage Start Date Coverage End Date [employer] Medicare [id number] [address] [address] [place] [address] [id number] Peewee, Caitlin Self - patient is the insured Medical (General) History Medical History History ICD Code Diverticulosis Headaches/Migraines Osteoporosis Sinus conditions Mumps Chicken pox covid-19 Measles sleep and movement disorder Surgical History Surgery Date(Month/Year) A.C.L. Repair Meniscus repair
--- OUTSIDE RECORDS SUMMARY | 2025-01-01 12:38 | XMS_ITS ---
Author Organization [facility] [place] Address [address] [facility] [place] [address] Care Team Providers Care Sports Administrator Name Role Phone Chip Lovell MD Primary Care Provider Flora Munguia Unavailable [phone] Allergies Allergen (clinical drug ingredient) Drug/Non Drug Allergy documented on EMR Reaction Allergy Type Onset Date Status erythromycin Erythromycin diarrhea/vomiti ng Drug Allergy Active REASON FOR VISIT Heel pain Medications Medication SIG (Take, Route, Frequency, Duration) Notes Start Date End Date Status Vitamin D Active Calcium Active Custom Orthotics as directed 04/30/2021 Not-Taking Nightsplint . . . AFO - L1930 for . Not-Taking Risedronate Sodium 35 MG TAKE 1 TABLET B Y MOUTH EVERY WEEK WITH 6-8 OUNCES OF PLAIN WATER, AT LEAST 30 MINUTES BEFORE FIRST FOOD, BEVERAGE, OR MEDICATION OF THE DAY Oral for 84 Not-Takin g Multivitamin Active Social History Tobacco Use: Social History Observation [...] past year? Declined to specify (0 point) Points 4 Interpretation Positive Problems Problem Type SNOMED Code ICD Code Onset Dates Problem Status W/U Status Risk Notes Problem Plantar fascial fibromatosis (32729897) Plantar fasciitis, bilateral (M72.2) Active confirmed Vital Signs Height 5ft 2in in 10/15/2024 Weight 116 lbs 10/15/2024 BMI 21.21 kg/m2 10/15/2024 Blood pressure systolic 120 mm Hg 10/15/19 25 Blood pressure diastolic 80 mm Hg 025 Encounters Encounter Location Date Provider Diagnosis [facility] [address] 10/15/2024 Flora Perica Pain in right foot M79.671 ; Plantar fasciitis, bilateral M72.2 ; Calcaneal spur, right foot M77.31 ; Other myositis of right foot M60.871 ; Bursitis of right foot M77.51 ; Pain in left foot M79.672 ; Calcaneal spur, left foot M77.32 ; Other myositis of left foot M60.872 and Bursitis of left foot M77.52 Assessments Encounter Date Diagnosis (ICD Code) Assessment Notes Treatment Notes Treatment Clinical Notes Section Notes 10/15/2024 Pain in right foot (ICD-10 - M79.671) 10/15/2024 Plantar fasciitis, bilateral (ICD-10 - M72.2) Patient Educated with: HEEL CORD STRETCHES.pdf (HEEL CORD STRETCHES.pdf) Patient Educated with: RICE THERAPY.pdf (RICE THERAPY.pdf) 10/15/2024 Calcaneal spur, right foot (ICD-10 - M77.31) 10/15/2024 Other myositis of right foot (ICD-10 - M60.871) 10/15/2024 Bursitis of right foot (ICD-10 - M77.51) 10/15/2024 Pain in left foot (ICD-10 - M79.672) 10/15/2024 Calcaneal spur, left foot (ICD-10 - M77.32) 10/15/2024 Other myositis of left foot (ICD-10 - M60.872) 10/15/2024 Bursitis of left foot (ICD-10 - M77.52) Plan Of Treatment Treatment Notes Assessment Notes Plantar fasciitis, bilateral Patient Edu cated with: HEEL CORD STRETCHES.pdf (HEEL CORD STRETCHES.pdf) Patient Educated with: RICE THERAPY.pdf (RICE THERAPY.pdf) Pending Test Test Name Order Date X ray : Foot, left 3V 10/15/2024 X ray : Foot, right 3V 10/15/2024 Next Appt Details Follow Up: 3-4 Weeks, Reason : Progress Notes * Alisha GRIFFINOB:1950 (73 yo F)Acc No.[id number]:10/15/2024 Progress Notes Patient:?Caitlin GRIFFIN Provider:?Flora Tatum DPM :1950???Age:73 Y???Sex:Female D ate:10/15/2024 Address:[address] [place], [place] [id number] Pcp:Chip Lovell MD Subjective: * Chief Complaints: * ???Heel pain * HPI: ???Heel pain:?Nature:?tenderness, sharp pain, stiffness.?Location:?Proximal plantar aspect of Heel , B/L.?Duration:?several months.?Onset/Cause:?gradual.?Course:?worse.?Aggravated:?standing, walking, walking first thing in the morning/after rest.?Treatments:?rest/alter normal daily activity, change in shoes, gel cushions, stretching.? * ROS:?General/Constitutional:?Nausea?denies.?Vomiting?denies.?Hunger Thirst?denies.?Loss appetite?denies.?Chills?denies.?Fatigue?denies.?Fever?denies.?Night Sweats?denies.?Unexplained weight loss?denies.?Unexplained weight gain?denies.?HEENTM:?Dentures?denies.?Dizziness?denies.?Glasses/contacts?admits.?Retinopathy?de nies.?Blurred/double vision?denies.?TMJ?denies.?Discharge/drainage?denies.?Implants?denies.?Sore throat?denies.?Dental implants?denies.?Hard of hearing ?denies.?Difficulty chewing/swallowing/speaking?denies.?Nose bleeds?denies.?Sore mouth?denies.?Respiratory:?On Oxygen?denies.?Pneumonia/pleurisy?denies.?Bronchitis?denies.?Emphysema?denies.?C oughing?denies.?Cough blood?denies.?Shortness of breath?denies.?Wheezing?denies.?Cardiovascular:?Pacemaker?denies.?MVP?denies.?WPW?denies.?CHF?denies.?Heart attack?denies.?Septal defect?denies.?Rapid beat?denies.?Chest pain ?denies.?Atrial Fib.?denies.?Murmur/Palpitations?denies.?Gastrointestinal:?Hemorrhoids?denies.?Stomach/Abdominal pain?denies.?Dark blood stool?denies.?Irritable bowel ?denies.?Constipation?denies.?Diarrhea?denies.?Hematology:?Swelling?denies.?Clots?denies.?Varicose Veins?denies.?Bruising?denies.?Bleeding problem?denies.?Genitourinary:?Blood urine?denies.?Frequent/Painfu/urination/bladder control?denies.?Kidney stones?denies.?Infection (UTI)?admits.?Nephropathy?denies.?sex trans dis (STD)?denies.?Prostate?denies.?Musculoskeletal:?Hammertoes?denies.?Bunions?denies.?Back Pain?denies.?Muscle Cramps/ Resting?denies.?Muscle cramps / walking?denies.?Generalized aches and pains?denies.?Weakness?denies.?Integ.:?Posadas?denies.?Scars?denies.?Corns/calluses?denies.?Ingrown nails?denies.?Painful nails?denies.?Open Sores?denies.?Rashes?denies.?Neurologic:?Difficulty sleeping?denies.?Brain disorder?denies.?Numbness?denies.?Balance trouble?denies.?Confusion?denies.?Fainting/blackouts?denies.?Tingling?denies.?Tr emors?denies.? * Medical History:? * Surgical History:?DyanaCJudah Rep air Meniscus repair * Hospitalization/Major Diagno stic Procedure:?Denies Past Hospitalization * Family History:?Mother: dece ased, diagnosed with Unspecified cerebral artery occlusion with cerebral infarction, Other malignant neoplasm of unspecified site.?Father: .?Maternal aunt: diagnosed with Other malignant neoplasm of unspecified site.?Siblings: diagnosed with Family history of arthritis.? Maternal Nephew - Cancer. * Social History:?Tobacco Use:?Tobacco use other than smoking?Are you an other tobacco user??No ?Tobacco Control (Standard)?Tobacco use:?Nonsmoker ?Additional Findings: Tobacco non-user?Current nonsmoker ???Drugs/Alcohol:?Drugs?Have you used drugs other than those for medical reasons in the past 12 months??No ???Miscellaneous:?Caffeine: no. ?Children: yes, 2. ?Exercise: no. ?Marital status: . ???Drug/Alcohol:?AUDIT-C (Standard)?Did you have a drink containing alcohol in the past year??Yes ?How often did you have a drink containing alcohol in the past year??Daily or almost daily (4 points) ?How many drinks did you have on a typical day when you were drinking in the past year??Declined to specify (0 point) ?How often did you have six or more drinks on one occasion in the past year??Declined to specify (0 point) ?Points?4 ?Interpretation?Positive * Medications:?TakingCalcium V itamin D Multivitamin Taking Calcium Taking Vitamin D Taking Multivitamin Not-Taking/PRNRisedronate Sodium 35 MG Tablet TAKE 1 TABLET BY MOUTH EVERY WEEK WITH 6-8 OUNCES OF PLAIN WATER, AT LEAST 30 MINUTES BEFORE FIRST FOOD, BEVERAGE, OR MEDICATION OF THE DAY Oral Nightsplint . . . . AFO - L1930 Custom Orthotics as directed Medication List reviewed and reconciled with the patientNot-Taking/PRN Risedronate Sodium 35 MG Tablet TAKE 1 TABLET BY MOUTH EVERY WEEK WITH 6-8 OUNCES OF PLAIN WATER, AT LEAST 30 MINUTES BEFORE FIRST FOOD, BEVERAGE, OR MEDICATION OF THE DAY Oral Not-Taking/PRN Nightsplint . . . . AFO - L1930 Not-Taking/PRN Custom Orthotics as directed Medication List reviewed and reconciled with the patient * Allergies:?Erythromycin: david rrhea/vomitingyes[Allergies Verified] Objective: * Vitals:?Ht: 5ft 2in, Wt:116, BMI:21.21, Shoe size: 6-6.5, BP:120/80mm Hg, Ht-cm: 157.48 cm, Wt-k.62 kg. * Examination: ???Heel Pain: ?INSPECTION REVEALS:?Pain on Palpation to Plantar Fascia med. and central bands, intrinsic musc., infra-calcaneal bursa, and med calc tubercle, B/L, No pain: posterior/superior heel, achilles bursa/tendon, sinus tarsi, peroneals, or with lateral heel compression; no limited STJ ROM, calor, or ecchymosis.?X-Rays - IMAGING REPORT: ?Clinical Indication(s):? Evaluate for Fracture, Evaluate Biomechanical Deformity.?Views:?3 views of Foot, LAT, LO, MO , B/L??Taken by trained?Podiatric Primary Care Coordinator (?TG ).?Findings:?normal bone and soft tissue density consistent for patients age and sex, navicular/cuneiform plantar subluxation with anterior cyma line, positive infra-calcaneal exostosis, no coalitions identified.?Fracture:?Negative fractures identified.?Orthopedic: ?MUSCLE STRENGTH:?5/5 all groups in a symmetrical fashion, B/L.?FOOTWEAR:?shoe gear properties exacerbate patients foot/toe deformity.?Neurological: ?SENSORY:?Neurological exam reveals intact sensorium, pain sensation normal, vibration sensation intact, pinprick sensation is normal in the lower extremities, Pt denies, anesthesia, burning, paresthesia, tingling, B/L.?TINEL'S COMPRESSION:?Negative tarsal tunnel, robel pedis, and medial calcaneal nerves.?General Examination: ?GENERAL APPEARANCE:?Reveals a pleasant, alert, well nourished, well- developed, well hydrated individual, who demonstrates proper attention to hygiene/body habitus, and is in no acute distress, Pt serves as own historian for office visit today.?ORIENTED:?person, place, and time.?Vascular: ?DP PULSES (B):?3/4, B/L.?PT PULSES (B):?3/4, B/L.?CAPILLARY FILL TIME:?immediate, all digits, B/L.?TROPHIC CONDITION-TEXTURE/ELASTICITY/TURGOR/HAIR GROWTH (B):?normal, B/L.?TEMPERTURE GRADIENT (C):?normal, warm to cool, proximal to distal, B/L, B/L.?PIGMENTATION:?normal, B/L.?EDEMA (C):?absent, B/L.? Assessment: * Assessment: 1.?Pain in right foot - M79. 671???2.?Plantar fasciitis, bilateral - M72.2 (Primary)???Specify :Acute problem, Complicated w/ Multiple Tx Options(4),Dx New problem, Prognosis Uncertain (4)???3.?Calcaneal spur, right foot - M77.31???4.?Other myositis of right foot - M60.871???5.?Bursitis of right foot - M77.51???6.?Pain in left foot - M79.672???7.?Calcaneal spur, left foot - M77.32???8.?Other myositis of left foot - M60.872???9.?Bursitis of left foot - M77.52??? Plan: * Treatment: 2.?Pain in right foot?Imaging: X ray : Foot, right 3V 3.?Pain in left foot?Imaging: X ray : Foot, left 3V * Procedure Codes:?23431 X-RAY EXAM OF RIGHT FOOT 3V, Modifiers: 26 , [id number] X- RAY EXAM OF LEFT FOOT 3V, Modifiers: 26 , LT * Preventive Medicine:? ??Counseling:?Discussion:?-04: Office or other outpatient visit for the evaluation and management of a new patient, which required a medically appropriate history and/or examination and MODERATE level of DECISION MAKING for: 1 OR MORE CHRONIC PROBLEM(S) THATS WORSENING, 2 STABLE CHRONIC PROBLEMS, A NEWLY DIAGNOSED PROBLEM WITH UNCERTAIN PROGNOSIS, AN ACUTE COMPLICATED INJURY WITH MULTIPLE TREATMENT OPTIONS, OR AN ACUTE PROBLEM WITH ACCOMPANYING SYSTEMIC SYMPTOMS, THAT POSE(S) A MODERATE RISK OF MORBIDITY. THIS CONDITION MAY ALSO INCLUDE RX DRUG MANAGEMENT, OR A DECISON FOR MINOR SURGERY. The visit on the day of the encounter encompassed interpreting the data and educating the patient as to the nature of their condition, treatment options available according to their individual PMH, meds, allergies, and overall health/living conditions, as well as any potential risks or complications that may occur from a failure to adhere to, and participate in, the recommended course of therapy. The discussion included a complete verbal, and/or written explanation of the examination results, any x-rays taken, the proposed diagnosis, and outline of the treatment plan. A schedule for future care needs was also explained. The patient verbalized an understanding of the instructions at this time and agreed to be an active participant in their treatment. If the patient should think of any questions or concerns after the visit, I have encouraged the patient to call the office.?Heel pain:?FASCIITIS: I explained to the patient the possible etiologies of Plantar Fasciitis including foot type/shoegear/activity level/exercise routine and the risks/benefits of all the different treatment options for heel pain including: No treatment at all, Rest, Ice, NSAIDs(only if well tolerated after meals), New/supportive Shoegear, Strappings and Tapings, Stretching exercises, Deep Tissue Massage, Heel cups/cushions, Arch support/shoe inserts, Custom orthoses, Topical analgesics including Aspercream/Voltaren gel, Night splint AFO for am stiffness, Cortisone injection therapy, Cast boot with crutches/cane/or walker for assisted ambulation, Physical Therapy, EPAT/ESWT, Interfil injection therapy, as well as surgical Lares/Endoscopic Fasciitomy surgical procedures if needed. Recommendations were made to limit barefoot walking, eliminate wearing nonsupportive shoegear (i.e. flip-flops or sandals, or a shoe with an easily bendable, foldable, or twistable sole) and wear shoegear with a good solid sole, a supportive arch, and plenty of room for an insert/orthotic if necessary. If wearing sandals was required by the patient, we recommended orthopedic sandals such as Orthoheel or Birkenstock even while in the home. If the patient wore heels in the past, we recommended they continue, but eliminate the use of flats. The advantages and disadvantages of each option were discussed and the patients questions re: types of shoegear, custom vs prefabricated inserts, activity level, PO vs Topical medications (and their respective potential complications/drug interactions/side effects), and consistency in home treatment regimens for optimal success were answered to their satisfaction. Literature detailing plantar fasciitis and the various treatment options were dispensed and reviewed.?Orthotics:?I explained to the patient the benefits of OT use. I explained that orthoses are medically necessary to decrease the foot pain through proper mechanical control, support of their foot , decrease stretch/strain on the plantar fascia, Custom OT: A comprehensive biomechanical exam, gate analysis, and casting for custom orthoses was performed.?P.R.I.C.E.:?The patient was counseled on the use of P.R.I.C.E. and NSAIDS (if well tolerated) to aid in the recovery from their painful condition.?Shoe Gear Counseling:?The patient and I reviewed the types of shoes they should be wearing. My recommendation included obtaining a well-fitted shoe with a good supportive, non-foldable nor twistable sole, plenty of toe/room for the forefoot, and proper arch support. Based on todays examination, I recommended the patient look for new shoes, by having their feet professionally measured. We discussed that generally the best time of the day for a shoe fitting is the afternoon. Different shoes types and brands to best match the patients occupation and vocation were discussed. Specific brand selection will be up to the patient, their individual foot condition/deformities, and fit. The patient and I reviewed the standard new shoe break in period by wearing them for a few hours a day while checking for redness or sores as wear time is increased. The patient verbally confirmed to understanding the information discussed.?Stretching Exercises:?Stretching and deep tissue massage exercises for the patients injury/diagnosis were discussed and demonstrated, handouts were dispensed.?X-rays:?Discussed and reviewed the X-rays with the patient. We discussed how the findings relate to the patients symptoms/complaints. Answered any and all questions..? ??Screening/Special Tests:?Fall Risk?Screening:?No falls in the past year ?FALLS: Screening for Future Fall Risk?Have you had any falls with injury in the past year??No * Follow Up:?3-4 Weeks * Images: * Sign off status: Completed true * Provider:Stefan Tatum DPM Date:? Generated for Vik pierre/Dario/eTfnaitting on:?01/01/2025 12:38 PM EDT History and Physical Notes * HPI (History of Present Illness) Category Sub-Category Detail Notes Category Not es Heel pain Duration: several months Nature: tenderness, sharp pa in, stiffness Location: Proximal plantar asp ect of Heel , B/L Onset/Cause: gradual Aggravated: standing, walking, w alking first thing in the morning/after rest Course: worse Treatments: rest/alter normal da bola activity, change in shoes, gel cushions, stretching Examination Category Sub-Category Detail Notes Category Not es Heel Pain INSPECTION REVEALS: Pain on Palp ation to Plantar Fascia med. and central bands, intrinsic musc., infra-calcaneal bursa, and med calc tubercle, B/L, No pain: posterior/superior heel, achilles bursa/tendon, sinus tarsi, peroneals, or with lateral heel compression; no limited STJ ROM, calor, or ecchymosis Neurological SENSORY: Neurological exa m reveals intact sensorium, pain sensation normal, vibration sensation intact, pinprick sensation is normal in the lower extremities, Pt denies, anesthesia, burning, paresthesia, tingling, B/L TINEL'S COMPRESSION: Negative tarsal juan pablo estelle, robel pedis, and medial calcaneal nerves Orthopedic FOOTWEAR EVALUATION: shoe gear p roperties exacerbate patients foot/toe deformity MUSCLE STRENGTH: 5/5 all groups in a symmetrical fashion, B/L General Examination GENERAL APPEARANCE: Reveals a pleasant, alert, well nourished, well-developed, well hydrated individual, who demonstrates proper attention to hygiene/body habitus, and is in no acute distress, Pt serves as own historian for office visit today ORIENTED: person, place, and t thaddeus Vascular DP PULSES (B): 3/4, B/L PT PULSES (B): 3/4, B/L CAPILLARY FILL TIME: immediate, all digi ts, B/L TEMPERTURE GRADIENT (C): normal, warm to cool, proximal to distal, B/L, B/L TROPHIC CONDITION-TEXTURE/ELASTICITY/TURGOR/HAIR GROWTH (B): normal, B/L EDEMA (C): absent, B/L PIGMENTATION: normal, B/L X-Rays - IMAGING REPORT Findings: normal b one and soft tissue density consistent for patients age and sex, navicular/cuneiform plantar subluxation with anterior cyma line, positive infra-calcaneal exostosis, no coalitions identified Fracture: Negative fractures i dentified Views: 3 views of Foot, LAT , LO, MO , B/L Taken by trained Podiatric Primary Care Coordinator ( TG ) Clinical Indication(s): Evaluate for Fra cture, Evaluate Biomechanical Deformity
--- OUTSIDE RECORDS SUMMARY | 2025-01-01 12:38 | XMS_ITS ---
Author Organization [facility] Address [address] [place] [address] Care Team Providers Care Psychologist Chief Name Role Phone Chip Lovell MD Primary Care Provider Gene Tatum Flora Unavailable [phone] Allergies Allergen (clinical drug ingredient) Drug/Non Drug Allergy documented on EMR Reaction Allergy Type Onset Date Status erythromycin Erythromycin diarrhea/vomiti ng Drug Allergy Active REASON FOR VISIT Heel pain Medications Medication SIG (Take, Route, Frequency, Duration) Notes Start Date End Date Status Vitamin D Active Custom Orthotics as directed 04/30/2021 Not-Taking Nightsplint . . . AFO - L1930 for . Not-Taking Risedronate Sodium 35 MG TAKE 1 TABLET B Y MOUTH EVERY WEEK WITH 6-8 OUNCES OF PLAIN WATER, AT LEAST 30 MINUTES BEFORE FIRST FOOD, BEVERAGE, OR MEDICATION OF THE DAY Oral for 84 Not-Takin g Multivitamin Active Calcium Active Vitamin B6 Active Melatonin 5 MG 1 tablet in the even ing Orally Once a day Active Social History Tobacco Use: Social History [...] Never (0 point) Points 4 Interpretation Positive Vital Signs Height 5ft 2in in 11/20/2024 Weight 115 lbs 11/20/2024 BMI 21.03 kg/m2 11/20/2024 Blood pressure systolic 122 mm Hg 11/21/19 25 Blood pressure diastolic 71 mm Hg 025 Heart Rate 56 /min 11/20/2024 Encounters Encounter Location Date Provider Diagnosis [facility] [place] [address] [place] [address] 11/20/2024 Flora Tatum Pain in right foot M79.671 ; Plantar fasciitis, bilateral M72.2 ; Calcaneal spur, right foot M77.31 ; Pain in left foot M79.672 and Calcaneal spur, left foot M77.32 Assessments Encounter Date Diagnosis (ICD Code) Assessment Notes Treatment Notes Treatment Clinical Notes Section Notes 11/20/2024 Pain in right foot (ICD-10 - M79.671) 11/20/2024 Plantar fasciitis, bilateral (ICD-10 - M72.2) 11/20/2024 Calcaneal spur, right foot (ICD-10 - M77.31) 11/20/2024 Pain in left foot (ICD-10 - M79.672) 11/20/2024 Calcaneal spur, left foot (ICD-10 - M77.32) Plan Of Treatment Next Appt Details Follow Up: prn, Reason: Progress Notes * Alisha GRIFFINOB:1950 (73 yo F)Acc No.[id number]:11/20/2024 Progress Note Patient:?Caitlin GRIFFIN Provider:?Flora Tatum DPM :1950???Age:73 Y???Sex:Female D ate:11/20/2024 Address:[address] [place] [address] Pcp:Chip Lovell MD Subjective: * Chief Complaints: * ???Heel pain * HPI: ???Heel pain:?Location:?Proximal plantar aspect of Heel , B/L.?Duration:?several months.?Onset/Cause:?gradual.?Course:?improved.?Aggravated:?standing, walking, walking first thing in the morning/after [...] trouble?denies.?Confusion?denies.?Fainting/blackouts?denies.?Tingling?denies.?Tr emors?denies.? * Medical History:? * Surgical History:?A.C.L. Rep air Meniscus repair * Hospitalization/Major Diagno stic Procedure:?Denies Past Hospitalization * Family History:?Mother: dece ased, diagnosed with Other malignant neoplasm of unspecified site, Unspecified cerebral artery occlusion with cerebral infarction.?Father: .?Maternal aunt: diagnosed with Other malignant neoplasm of unspecified site.?Siblings: diagnosed with Family history of arthritis.? Maternal Nephew - Cancer. * Social History:?Tobacco Use:?Tobacco use other than smoking?Are you an other tobacco user??No ?Tobacco Control (Standard)?Tobacco use:?Nonsmoker ?Additional Findings: Tobacco non-user?Current nonsmoker ???Drugs/Alcohol:?Drugs?Have you used drugs other than those for medical reasons in the past 12 months??No ???Miscellaneous:?Caffeine: no. ?Children: yes, 2. ?Exercise: yes, walking, yoga, skiing, snowshoe. ?Marital status: . ?Occupation: Retired- Teacher. ???Drug/Alcohol:?AUDIT-C (Standard)?Did you have a drink containing alcohol in the past year??Yes ?How often did you have a drink containing alcohol in the past year??Daily or almost daily (4 points) ?How many drinks did you have on a typical day when you were drinking in the past year??1 or 2 drinks (0 point) ?How often did you have six or more drinks on one occasion in the past year??Never (0 point) ?Points?4 ?Interpretation?Positive * Medications:?TakingMelatonin 5 MG Tablet 1 tablet in the evening Orally Once a day Vitamin B6 Calcium Vitamin D Multivitamin Taking Melatonin 5 MG Tablet 1 tablet in the evening Orally Once a day Taking Vitamin B6 Taking Calcium Taking Vitamin D Taking Multivitamin [...] rrhea/vomitingyes[Allergies Verified] Objective: * Vitals:?Ht: 5ft 2in, Wt:115, BMI:21.03, Shoe size: 6-6.5, BP:122/71mm Hg, HR:56/min, Ht-cm: 157.48 cm, Wt-k.16 kg. * Examination: ???Heel Pain: ?INSPECTION REVEALS:?Mild Pain on Palpation to Plantar Fascia med. and central bands, intrinsic musc., infra-calcaneal bursa, and med calc tubercle, B/L, No pain: posterior/superior heel, achilles bursa/tendon, sinus tarsi, peroneals, or with lateral heel compression; no limited STJ ROM, calor, or ecchymosis.?Orthopedic: ?MUSCLE STRENGTH:?5/5 all groups in a symmetrical fashion, B/L.?Neurological: ?SENSORY:?Neurological exam reveals intact sensorium, pain sensation [...] - M79. 671???2.?Plantar fasciitis, bilateral - M72.2 (Primary)???3.?Calcaneal spur, right foot - M77.31???4.?Pain in left foot - M79.672???5.?Calcaneal spur, left foot - M77.32??? Plan: * Treatment: * Procedure Codes:? * Preventive Medicine:? ??Counseling:?Discussion:?-13: Office or other outpatient visit for the evaluation and management of an established patient, which required a medically appropriate history and/or examination and LOW level of DECISION MAKING for: 1 STABLE ACUTE UNCOMPLICATED PROBLEM, 2 OR MORE MINOR PROBLEMS, OR 1 STABLE CHRONIC PROBLEM, THAT POSE(S) A LOW RISK FOR MORBIDITY/MORTALITY. The visit on the day of the [...] encouraged the patient to call the office.?Heel pain:?Discussed other tx options for the patients condition, Given recent successful results to treatment, the patient wishes to continue with the present plan for their condition.?Orthotic Dispensing:?The patient presents today for fitting and dispensing of orthotics. The inserts were checked against the prescription and found to be accurate. They were properly fitted to the patients feet and shoes in both weight-bearing and non-weight bearing attitudes. The patient was instructed to gradually increase the amount of time they are wearing the orthoses, starting with one hour the first day and thereon progressively increasing the amount of time used by one hours per day until they are comfortable to be worn all day and with all activities. They were asked to call the office if any signs of skin irritation were noted including redness, blistering or callous formation. The patient verbally indicated a full understanding of all the above information, Handout reviewed and dispensed.? ??Screening/Special Tests:?Fall Risk?Screening:?No falls in the past year ?FALLS: Screening for Future Fall Risk?Have you had any falls with injury in the past year??No * Follow Up:?prn * Images: * Sign off status: Completed true * Provider:?Flora Tautm DPM Date:?12/2024 Generated for Vik pierre/Dario/Sandhyaitting on:?01/01/2025 12:38 PM EDT History and Physical Notes * HPI (History of Present Illness) Category Sub-Category Detail Notes Category Not es Heel pain Duration: several months Location: Proximal plantar asp ect of Heel , B/L Onset/Cause: gradual Aggravated: standing, walking, w alking first thing in the morning/after rest Course: improved Treatments: rest/alter normal da bola activity, change in shoes, gel cushions, stretching Examination Category Sub-Category Detail Notes Category Not es Heel Pain INSPECTION REVEALS: Mild Pain on Palpation to Plantar Fascia med. and [...] robel pedis, and medial calcaneal nerves Orthopedic MUSCLE STRENGTH: 5/5 all groups in a symm etrical fashion, B/L General Examination GENERAL APPEARANCE: Reveals [...]
--- OUTSIDE RECORDS SUMMARY | 2025-01-01 12:39 | XMS_ITS | Continuity of Care Document ---
Author Organization [facility] Address [address] [place] [address]- Care Team Providers Care Dike Supervisor Name Role Phone Nas JAY, Chip Willis Primary Care Physician [phone] Encounter [facility] Date(s): 11/27/24 - 12/27/[address] [address] Attending Physician: Tamy Youssef Admitting Physician: AdmtrTamy Referring Physician: Admtr, Ar8 Encounter Type: Triage Allergies, Adverse Reactions, Alerts [...] virus vaccine, inactivated 09/05/09 Darren rded SARS-CoV-2(COVID-19)mRNA-LNP vac(hwc288) 07/02/24 Recorded SARS-CoV-2(COVID-19)mRNA-LNP vac(rsh736) 06/20/23 Recorded [id number] 12y+ bivalent booster vax 07/01/22 Recorded SARS-CoV-2 mRNA (zwgsnhh-kwhu-drwvq) vax 01/04/22 Recorded SARS-CoV-2 (COVID-19) mRNA BNT-162b2 [...] Refills, Maintenance, 12/21/24 11:35:00 AM EDT, Tablet, [facility]/pharmacy #[id number], Partial fill upon patient request if [...] - Primary Care Member Role: PCP Address: [address] [place] [address]- Telecom: Care Team Related Persons Name: BROOKE GRIFFIN Insurance Providers Guarantor name: DINA [facility] Plan Information #: 1 Payer: KAREN FIGUEROA ADV Member Number: NA Policy Number: NA Group Number: NA
== END 2025-01-01 11:28 | disposition home or self-care (01) ==
LOC: HO.HSMS 10:32
PROVIDERS: PCP Family Medicine; Visit Provider Physician Assistant Medical
DX: G25.81 Restless legs syndrome (principal); G47.61 Periodic limb movement disorder
CPT/HCPCS: 99214

== ENCOUNTER 2025-01-23 10:07 | Outpatient (AMB) | payer MEDICARE, SELFPAY ==
--- NOTE | 2025-01-23 10:12 | A.OFFVIS_ITS ---
Vital Signs 01/23/25 10:13 Height 5 ft 2 in Weight 113 lb 10 oz BMI 20.8 BP 126/68 Blood Pressure Location Rt brachial Position Sitting Pulse 86 Pulse Source Pulse Oximeter Pulse Oximetry (%) 96 Oxygen Delivery Method Room Air Intake Visit Reasons: [place] screening Intake Note: ESTABLISHED PATIENT for repeat colo. Last was 2019 w/ Dr. Downing. Chief Complaint; C/O recent exacerbation of fecal abn. Pt has been having increasing frequency but intermittent constipation and diarrhea. Pt recently switched from senna to citrucel tabs. Pt also reports recent episode of diverticulitis x1 mos ago. Credit Office Manager Required: No Accompanied by: Self / Same As Patient Allergies erythromycin base Allergy (Verified 01/23/25 10:13) Unknown HPI HPI [place] screening: Details: 74 year old? female is here today for pre colonoscopy screening.? Patient was sent to us by her PCP.? Last colonoscopy in September of 2019. Reviewed Dr. Downing operative notes. Procedure was difficult as Dr. Downing had trouble to to maneuver the scope. Patient had what it looked like prolapse of the sigmoid colon into the rectum. Position was changed, patient placed on her back and with abdominal pressure Dr. Downing was able to navigate through the colon.? Denies any personal or family history of gastrointestinal disease or CRC.? Patient reports that about a month ago or so she had episode of constipation and severe lower abdominal pain. PCP diagnosed patient with diverticulitis and script for antibiotics was given. Patient is taking MiraLax and fiber. She is able to move her bowels when she takes it, however she is unable to move her bowels if she will not take any laxatives or fiber. Denies history of difficulty with sedation or anesthesia in the past.? Negative for history of s leep apnea.? Denies any history of cardiac, renal, pulmonary, or hepatic disease.?? No history of infectious? diseases like hepatitis A, B, C, HIV or tuberculosis.? Patient is not on any anticoagulation [facility] Medical History Sessile colonic polyp Recurrent sinusitis Osteoporosis Hyperlipidemia History of shingles Diverticulosis large intestine w/o perforation or abscess w/bleeding Deviated septum Chondromalacia of right knee Benign positional vertigo Arthritis of right hand Surgical History (Updated 01/23/25 @ 10:17 by ZANDER Mccartney) H/O colonoscopy S/P ACL repair Status post correction of deviated nasal septum H/O medial meniscus repair of right knee Family History Mother Breast cancer Social History Alcohol intake: current Patient Tobacco Use Status: Never used Tobacco Review of Systems Const Denies weight gain and Denies weight loss ENT Reports no additional complaints, Denies dysphagia and Denies odynophagia Card Reports no additional complaints Resp Reports no additional complaints GI Denies abdominal pain, Denies belching, Denies melena, Denies bloating, Denies change in bowel habits, Reports constipation, Denies dysphagia, Denies excessive flatus, Denies dyspepsia, Denies heartburn, Denies diarrhea, Denies loose stools, Denies nausea, Denies odynophagia and Denies vomiting Reports no additional complaints Musc Reports no additional complaints Neuro Reports no additional complaints Psych Reports no additional complaints Endo Reports no additional complaints Physical Exam Vital Signs: Last Vital Signs Pulse 86 01/23/25 10:13 BP 126/68 01/23/25 10:13 Pulse Ox 96 01/23/25 10:13 Oxygen Delivery Method Room Air 01/23/25 10:13 BMI result Body Mass Index 20.8 Const General: healthy appearing, no acute distress and well developed Nutritional Appearance: well nourished Orientation/consciousness: patient oriented x3 Resp Effort & Inspection: normal respiratory effort, able to speak in complete sentences, no tracheal deviation and symmetric chest movement Auscultation: clear to auscultation bilaterally Cardio Rate: regular rate GI Inspection: Yes normal to inspection and No distended Palpation (GI): Soft to palpation, not firm, nontender and No hepatosplenomegaly present Auscultation: normal bowel sounds General: Yes no CVA tenderness Back/Spine/Pelvis Back: no CVA tenderness Skin General skin exam: elasticity normal, turgor normal and dry skin Neuro General: patient oriented x3 Psych Appearance: grossly normal Mental Status: mental status grossly normal Assessment & Plan Assessment & Plan (1) Screen for colon cancer: Code(s): Z12.11 - Encounter for screening for malignant neoplasm of colon Plan: Patient denies any cardiac or respiratory symptoms.? Denies any issues with anesthesia in the past.? Denies any history of sleep apnea.? No history infectious diseases in the past or present.? Not on any anticoagulation therapy.? No family or personal history of colon cancer. Patient reports that she is taking fiber and sometimes MiraLax and she is able to move her bowels better. Patient was also encouraged to take stool softener. Increase fluid intake and activity to promote better bowel motility.? Patient denies melena, hematochezia, unintentional weight loss or ribbon like stools.? Discussed at length the pre-procedure,? prep, diet & medications as well as what to expect prior, during and after the procedure.?? Stressed the importance of good bowel prep.? Recommended the use of Vaseline or Calmoseptine OTC & baby wipes with bowel movements to promote comfort.? ?Patient verbalizes understanding and agrees to plan of care.? She was given the opportunity to ask questions and all questions answered.? We will see her after the procedure.? Medications: New bisacodyl (Dulcolax (bisacodyl)) take 4 tabs at noon the day before your colonoscopy 20 mg (4 x 5 mg) PO ONCE 4 tabs 0RF 1 day Z12.11 - Encounter for screening for malignant neoplasm of colon docusate sodium 100 mg PO BEDTIME 90 caps 3RF K59.00 - Constipation, unspecified polyethylene glycol 3350 (Miralax) As directed by gastroenterology department at [facility] 238 grams PO ONCE 238 grams 0RF Z12.11 - Encounter for screening for malignant neoplasm of colon Coding Level of Care Code New Pt Level 3 (18133) Diagnoses Screen for colon cancer Z12.11 Time Spent (min) 40 Comment 30 minutes spent with patient and additional 10 minutes spent reviewing her records
[2025-01-23 10:13] VITALS: BP 126/68; PULSE 86; O2SAT 96; BMI 20.8
--- OUTSIDE RECORDS SUMMARY | 2025-01-23 11:21 | XMS_ITS | Continuity of Care Document ---
Author Organization [facility] [facility] Address [address] [place] [address]- Care Team Providers Care Religion Professor Name Role Phone Nas JAY, Chip iWllis Primary Care Physician Encounter [facility] Date(s): 12/20/24 - 01/19/25 [facility] [address] [place] [address]- Encounter Type: Triage Allergies, Adverse Reactions, Alerts [...] virus vaccine, inactivated 09/05/09 Darren rded SARS-CoV-2(COVID-19)mRNA-LNP vac(skm500) 07/02/24 Recorded SARS-CoV-2(COVID-19)mRNA-LNP vac(utw603) 06/20/23 Recorded [id number]-NxY-2sJNI 12y+ bivalent booster vax 07/01/22 Recorded SARS-CoV-2 mRNA (uhkdwlz-ixyn-lalpm) vax 01/04/22 Recorded SARS-CoV-2 (COVID-19) mRNA BNT-162b2 [...] - Primary Care Member Role: PCP Address: [address] [place] [address]- [place] Telecom: Care Team Related Persons Name: BROOKE GRIFFIN Insurance Providers Guarantor name: DINA GRIFFIN Health Plan Information #: 1 Payer: KAREN ESCOBEDO Member Number: NA Policy Number: NA Group Number: NA
--- OUTSIDE RECORDS SUMMARY | 2025-01-23 11:22 | XMS_ITS ---
Author Organization [facility] Address [address] [facility] [place] [address] Care Team Providers Care Pin Game Machine Inspector Name Role Phone Chip Lovell MD Primary Care Provider Unava ilFlora Houser [phone] REASON FOR VISIT DPM orthotics 11/20/24 @ 10:15AM Encounters Encounter Location Date Provider Diagnosis [facility] [place] [address] [facility] [place] [address] 10/15/2024 Flora Tatum Plan Of Treatment No Information Progress Notes * Alisha GRIFFINOB:1950 (73 yo F)Acc No.[id number]:10/15/2024 Patient:?Caitlin GRIFFIN :1950???Age:73 Y???Sex:Female Address:[address], [place], [address] * true * Date:? Generated for Printi gabby/Dario/eTransmitting on:?01/23/2025 11:21 AM EDT
--- OUTSIDE RECORDS SUMMARY | 2025-01-23 11:22 | XMS_ITS ---
Author Organization [facility] Address [address] [facility] [place] [address] Care Team Providers Care Motor Grader Operator Name Role Phone Chip Lovell MD Primary Care Provider Flora Munguia Unavailable [phone] Allergies Allergen (clinical drug ingredient) Drug/Non Drug [...] Status W/U Status Risk Notes Problem Plantar fasciitis, bilateral (M72.2) Active confirmed Vital Signs Height 5ft 2in in 10/15/2024 Weight 116 lbs 10/15/2024 BMI 21.21 kg/m2 10/15/2024 Blood pressure systolic 120 mm Hg 10/15/19 25 Blood pressure diastolic 80 mm Hg 025 Encounters Encounter Location Date Provider Diagnosis [facility] [address] 10/15/2024 Flora Perica Pain in right foot [...] Notes * Alisha GRIFFINOB:1950 (73 yo F)Acc No.[id number]:10/15/2024 Progress Notes Patient:?Caitlin GRIFFIN Provider:?Flora Tatum DPM :1950???Age:73 Y???Sex:Female D ate:10/15/2024 Address:[address] [place] [address] [facility] Pcp:Chip Lovell MD Subjective: * Chief Complaints: [...] LAT, LO, MO , B/L??Taken by trained?Podiatric Scrap Sorter (?TG ).?Findings:?normal bone and soft tissue density [...] ray : Foot, left 3V * Procedure Codes:?02041 X-RAY EXAM OF RIGHT FOOT 3V, Modifiers: 26 , [id number] X- RAY EXAM OF LEFT FOOT 3V, [...] Interfil injection therapy, as well as surgical [place]/Endoscopic Fasciitomy surgical procedures if needed. Recommendations were [...] Sign off status: Completed true * Provider:?Flora Tatum DPM Date:? Generated for Vik pierre/Dario/Ana Rosa on:?01/23/2025 11:21 AM EDT History and Physical Notes * HPI [...] MO , B/L Taken by trained Podiatric Scrap Sorter ( TG ) Clinical Indication(s): Evaluate for Fra cture, Evaluate Biomechanical Deformity
--- OUTSIDE RECORDS SUMMARY | 2025-01-23 11:22 | XMS_ITS | Patient Health Record ---
[facility] Address [address] [facility] [place] [address] Care Team Providers Care Worship Director Name Role Phone Chip Lovell MD Primary Care Provider Gene StearnsDenys desaien Unavailable [phone] Emre, Trent Unavailable [phone] Allergies Allergen (clinical drug ingredient) Drug/Non Drug [...] Status Risk Notes Problem Plantar fascial fibromatosis ([id number]) Plantar fascial fibromatosis (M72.2) Active confirmed Problem Plantar fasciitis, bilateral (M72.2) Active confirmed Vital Signs Heart Rate 56 /min 11/20/2024 Blood pressure diastolic 71 mm Hg 11/20/2024 Height 5ft 2in in 11/20/2024 Blood pressure systolic 122 mm Hg 11/20/2024 Weight 115 lbs 11/20/2024 BMI 21.03 kg/m2 11/20/2024 Encounters Encounter Location Date Provider Diagnosis [address] [address] 10/15/2024 Flora Tatum Pain in right foot M79.671 ; Plantar fasciitis, bilateral M72.2 ; Calcaneal spur, right foot M77.31 ; Other myositis of right foot M60.871 ; Bursitis of right foot M77.51 ; Pain in left foot M79.672 ; Calcaneal spur, left foot M77.32 ; Other myositis of left foot M60.872 and Bursitis of left foot M77.[address] [address] 11/20/2024 Flora Tatum Pain in right foot M79.671 ; Plantar fasciitis, bilateral M72.2 ; Calcaneal spur, right foot M77.31 ; Pain in left foot M79.672 and Calcaneal spur, left foot M77.[address] [address] 07/31/2024 Trent Andrea [address] [address] 10/03/2024 Flora Tatum [address] [place] [address] 10/15/2024 Flora Tatum Assessments Encounter Date Diagnosis [...] Date Coverage End Date [employer] Medicare [id number] [address] [address] [place] [address] [id number] Caitlin Vides Self - patient is the insured Medical (General) History Medical History History ICD Code Diverticulosis Headaches/Migraines Osteoporosis Sinus conditions Mumps Chicken pox covid-19 Measles sleep and movement disorder Surgical History Surgery Date(Month/Year) A.C.L. Repair Meniscus repair
--- OUTSIDE RECORDS SUMMARY | 2025-01-23 11:22 | XMS_ITS ---
Author Organization [facility] Address [address] [place] [address] Care Team Providers Care Security Systems Sales Representative Name Role Phone Chip Lovell MD Primary Care Provider Gene Tatum Flora Unavailable [phone] Allergies Allergen (clinical drug ingredient) Drug/Non Drug [...] 11/20/2024 Encounters Encounter Location Date Provider Diagnosis [facility] [place] [address] [place] [address] 11/20/2024 Flora Tatum Pain in right foot [...] Notes * Alisha GRIFFINOB:1950 (73 yo F)Acc No.[id number]:11/20/2024 Progress Note Patient:?Ciatlin GRIFFIN Provider:?Flora Tatum DPM :1950???Age:73 Y???Sex:Female D ate:11/20/2024 Address:[address] [place] [address] Pcp:Chip Lovell MD Subjective: * Chief Complaints: [...] status: Completed true * Provider:?Flora Tatum DPM Date:?12/2024 Generated for Vik pierre/Dario/Sandhyaitting on:?01/23/2025 11:21 AM EDT History and Physical [...]
== END 2025-01-23 11:30 | disposition home or self-care (01) ==
LOC: HO.HGI 10:08
PROVIDERS: PCP Family Medicine; Visit Provider Nurse Practitioner Family
DX: Z01.818 Encounter for other preprocedural examination (principal); Z12.11 Encounter for screening for malignant neoplasm of colon
CPT/HCPCS: 99024

== ENCOUNTER → 2025-01-23 10:07 | Outpatient (BNVA) | payer MEDICARE, SELFPAY | PROVIDERS: PCP Family Medicine; Visit Provider Nurse Practitioner Family | DX: Z12.11 Encounter for screening for malignant neoplasm of colon (principal) | CPT/HCPCS: 99212 ==

== ENCOUNTER → 2025-01-28 11:16 | Outpatient (BNV) | payer MEDICARE, SELFPAY | PROVIDERS: PCP Family Medicine; Referring Provider Family Medicine; Visit Provider Internal Medicine | DX: R79.89 Other specified abnormal findings of blood chemistry (principal) | CPT/HCPCS: 99204; G2211 ==

== ENCOUNTER 2025-04-17 09:06 | Outpatient (AMB) | payer MEDICARE, SELFPAY ==
--- OUTSIDE RECORDS SUMMARY | 2025-04-13 23:59 | XMS_ITS | Continuity of Care Document ---
Author Organization [facility] Address [address] [place] [address]- Care Team Providers Care Shop Fitter Name Role Phone Nas JAY, Chip Willis Primary Care Physician Encounter [facility] [id number] Date(s): 03/14/25 - 04/13/25 KEITH [facility] Adult [address] [place] [address]- Encounter Type: Triage Allergies, Adverse Reactions, Alerts [...] virus vaccine, inactivated 09/05/09 Darren rded SARS-CoV-2(COVID-19)mRNA-LNP vac([id number]) 07/02/24 Recorded SARS-CoV-2(COVID-19)mRNA-LNP vac([id number]) 06/20/23 Recorded [id number] 12y+ bivalent booster vax 07/01/22 Recorded SARS-CoV-2 mRNA ([id number]) vax 01/04/22 Recorded SARS-CoV-2 (COVID-19) mRNA BNT-162b2 [...] Date: 01/22/19 Status: Ordered Repeat number: 1 docusate sodium 100 mg oral capsule 100 mg, 1, capsule, By Mouth, Daily, PRN, # 20 capsule, Refills 0, Maintenance, for constipation, 02/25/25 10:36:00 AM EDT, Partial fill upon patient request if the prescription is for a schedule II opioid drug. Start Date: 02/25/25 Status: Ordered Quantity: 20.0 Unit: capsule Repeat number: 1 melatonin 5 mg oral tablet, disintegrating 1 tablet = 5 mg, By Mouth, Daily at bedtime, PRN as needed for insomnia, # 90 tablet, 0 Refills, Maintenance, 02/25/25 10:35:00 AM EDT, DIS Tablet, Partial fill upon patient request if the prescriptionis for a schedule II opioid drug. Start Date: 02/25/25 Status: Ordered Quantity: 90.0 Unit: tablet Repeat number: 1 Multi Vitamin+ 0 Refills, Maintenance, 11/16/17 5:14:59 PM EST Start Date: 11/16/17 Status: Ordered Repeat number: 1 Vitamin B Complex oral tablet, extended release By Mouth, Daily, 0 Refills, Maintenance, 02/25/25 10:37:00 AM EDT, Partial fill upon patient request if the prescription is for a schedule II opioid drug. Start Date: 02/25/25 Status: Ordered Repeat number: 1 Vitamin D3 [...] Personnel Name: Nas JAY, Chip Willis Position: [facility] Physician - Primary Care Member Role: PCP Address: [address] [place] [address]- Telecom: Care Team Related Persons Name: BROOKE GRIFFIN Insurance Providers Guarantor name: DINA GRIFFIN Health Plan Information #: 1 Payer: KAREN ESCOBEDO Payer Identifier: NA Member Number: [id number] Group Number: [id number] Subscriber Identifier: [id number] Relationship to Subscriber: self Coverage Type: NA Coverage Verification Date: NA Telecom: NA Address:
--- OUTSIDE RECORDS SUMMARY | 2025-04-16 10:45 | XMS_ITS ---
Author Organization [facility] [place] Address [address] [facility] [place] [address] Care Team Providers Care Audio Specialist Name Role Phone Chip Lovell MD Primary Care Provider Flora Munguia Unavailable [phone] Allergies Allergen (clinical drug ingredient) Drug/Non Drug Allergy documented on EMR Reaction Allergy Type Onset Date Status erythromycin Erythromycin diarrhea/vomiti ng Drug Allergy Active REASON FOR VISIT Heel pain Medications Medication SIG (Take, Route, Frequency, Duration) Notes Start Date End Date Status Multivitamin Active Vitamin D Active Custom Orthotics as directed 04/30/2021 Not-Taking Risedronate Sodium 35 MG TAKE 1 TABLET B Y MOUTH EVERY WEEK WITH 6-8 OUNCES OF PLAIN WATER, AT LEAST 30 MINUTES BEFORE FIRST FOOD, BEVERAGE, OR MEDICATION OF THE DAY Oral; Duration: 84 Not-Taking Medrol salvador 4mg as directed orally a s directed; Duration: 6 days 04/16/2025 Active Melatonin 5 MG 1 tablet in the even ing Orally Once a day Active Calcium Active Vitamin B6 Active Night Splint AFO - L1930 as directed 04/16/2025 Active Social History Tobacco Use: Social History [...] Points 4 Interpretation Positive Vital Signs Height 5ft2in in 04/16/2025 Weight 115 lbs 04/16/2025 BMI 21.03 kg/m2 04/16/2025 Blood pressure systolic 121 mm Hg 04/16/20 25 Blood pressure diastolic 70 mm Hg 025 Encounters Encounter Location Date Provider Diagnosis [facility] [place] [address] [place] [address] 04/16/2025 Flora Tatum Pain in right foot M79.671 ; Plantar fasciitis, bilateral M72.2 ; Calcaneal spur, right foot M77.31 ; Pain in left foot M79.672 and Calcaneal spur, left foot M77.32 Assessments Encounter Date Diagnosis (ICD Code) Assessment Notes Treatment Notes Treatment Clinical Notes Section Notes 04/16/2025 Pain in right foot (ICD-10 - M79.671) 04/16/2025 Plantar fasciitis, bilateral (ICD-10 - M72.2) 04/16/2025 Calcaneal spur, right foot (ICD-10 - M77.31) 04/16/2025 Pain in left foot (ICD-10 - M79.672) 04/16/2025 Calcaneal spur, left foot (ICD-10 - M77.32) Plan Of Treatment Medication Medication Name Sig Start Date Stop Date Notes Medrol salvador 4mg as directed orally a s directed; Duration: 6 days 04/16/2025 Night Splint AFO - L1930 as directed 04/16/2025 Next Appt Details Follow Up: 2 Months, Reason: Provider Name:Flora desai, 08/09/2025 09:00:00 AM, [address] [place], [address], Progress Notes * Alisha GRIFFINOB:1950 (74 yo F)Acc No.[id number]:04/16/2025 Progress Note Patient: Caitlin BOOTH Provider: Sada Tatum DPM :1950 A ge:74 Y S ex:Female Date:04/16/2025 Address:[address] [place] [address], [id number] Pcp:Chip Lovell MD Subjective: * Chief Complaints: * H eel pain * HPI: H eel pain: Nature: a thierno, throbbing, tenderness. Location: P roximal plantar aspect of Heel , B/L, LEFT greater than Right. Duration: , more than six months. Onset/Cause: g radual. Course: , worse. Aggravated: s tanding, walking, walking first thing in the morning/after rest, pt states she walks twice a day. Treatments: r est/alter normal daily activity, change in shoes, gel cushions, stretching, custom orthoses, Topical CBD, THC cream. * ROS: G eneral/Constitutional: Nausea d enies, denies. V omiting d enies, denies.?Hunger Thirst d enies, denies. L oss appetite d enies, denies. C hills d enies, denies. F atigue d enies, denies. F ever d enies, denies. N ight Sweats denies, denies. U nexplained weight loss d enies, denies. U nexplained weight gain?denies, denies. H EENTM: Dentures d enies, denies. D izziness d enies, denies. G lasses/contacts a dmits, admits. R etinopathy d enies, denies. B lurred/double vision d enies, denies. T MJ d enies, denies. D ischarge/drainage d enies, denies. I mplants d enies, denies. S ore throat d enies, denies. D ental implants?denies, denies. H ashwini of hearing d enies, denies. D ifficulty chewing/swallowing/speaking d enies, denies. N ose bleeds d enies, denies. S ore mouth d enies, denies. R espiratory: On Oxygen d enies, denies. P neumonia/pleurisy d enies, denies. B ronchitis d enies, denies. E mphysema d enies, denies. C oughing?denies, denies. C ough blood d enies, denies. S hortness of breath d enies, denies. W heezing d enies, denies. C ardiovascular: Pacemaker d enies, denies. M PROGRESSIVE CARE MANAGER d enies, denies.?WPW d enies, denies. C HF d enies, denies. H eart attack d enies, denies.?Septal defect d enies, denies. R apid beat d enies, denies. C hest pain d enies, denies. A trial Fib. d enies, denies. M urmur/Palpitations d enies, denies. G astrointestinal: Hemorrhoids d enies, denies. S tomach/Abdominal pain?denies, denies. D ark blood stool d enies, denies. I rritable bowel d enies, denies. C onstipation d enies, denies. D iarrhea d enies, denies. H ematology: Swelling d enies, denies. C lots d enies, denies.?Varicose Veins d enies, denies. B ruising d enies, denies. B leeding problem?denies, denies. G enitourinary: Blood urine d enies, denies. F requent/Painfu/urination/bladder control d enies, denies. K idney stones d enies, denies. I nfection (UTI)?admits, admits. N ephropathy d enies, denies. s ex trans dis (STD) d enies, denies. P rostate d enies, denies. M usculoskeletal: Hammertoes d enies, denies. B unions d enies, denies. B ack Pain d enies, denies. M uscle Cramps/ Resting d enies, denies. M uscle cramps / walking d enies, denies. G eneralized aches and pains d enies, denies. W eakness d enies, denies. I nteg.: Posadas d enies, denies. S cars d enies, denies. C orns/calluses d enies, denies. I ngrown nails d enies, denies. P ainful nails d enies, denies. O pen Sores d enies, denies. R ashes d enies, denies. ? N eurologic: Difficulty sleeping d enies, denies. B rain disorder?denies, denies. N umbness d enies, denies. B alance trouble d enies, denies. C onfusion d enies, denies. F ainting/blackouts d enies, denies. T ingling d enies, denies. T remors d enies, denies. * Medical History: * Surgical History: A .C.L. Repair Meniscus repair * Hospitalization/Major Diagno stic Procedure: D enies Past Hospitalization * Family History: M other: , diagnosed with Other malignant neoplasm of unspecified site, Unspecified cerebral artery occlusion with cerebral infarction. F ather: . M aternal aunt: diagnosed with Other malignant neoplasm of unspecified site. S iblings: diagnosed with Family history of arthritis. Maternal Nephew - Cancer. * Social History: T obacco Use: T obacco use other than smoking A re you an other tobacco user? N o Tobacco Control (Standard) T obacco use: N onsmoker A dditional Findings: Tobacco non-user C urrent nonsmoker M iscellaneous: C affeine: no. Children: yes, 2. Exercise: yes, walking, yoga, skiing, snowshoe. Marital status: . Occupation: Retired- Teacher. D rug/Alcohol: A KRISTEN-C (Standard) D id you have a drink containing alcohol in the past year? Y es H ow often did you have a drink containing alcohol in the past year? D aily or almost daily (4 points) H ow many drinks did you have on a typical day when you were drinking in the past year? 1 or 2 drinks (0 point) H ow often did you have six or more drinks on one occasion in the past year? N ever (0 point) P oints 4 I nterpretation P ositive * Medications: T akingMelatonin 5 MG Tablet 1 tablet in the [...] BEVERAGE, OR MEDICATION OF THE DAY Oral Custom Orthotics as directed Medication List reviewed and reconciled with the patientNot-Taking/PRN Risedronate Sodium 35 MG Tablet TAKE 1 TABLET BY MOUTH EVERY WEEK WITH 6-8 OUNCES OF PLAIN WATER, AT LEAST 30 MINUTES BEFORE FIRST FOOD, BEVERAGE, OR MEDICATION OF THE DAY Oral Not- Taking/PRN Custom Orthotics as directed Medication List reviewed and reconciled with the patient * Allergies: E rythromycin: diarrhea/vomitingyes[Allergies Verified] Objective: * Vitals: H t: 5ft2in, Wt:115, BMI:21.03, Shoe size: 6-6.5, BP:121/70mm Hg, Ht-cm: 157.48 cm, Wt-k.16 kg. * Examination: H eel Pain: INSPECTION REVEALS: L EFT greater than Right, Pain on Palpation to Plantar Fascia med. and central bands, intrinsic musc., infra-calcaneal bursa, and med calc tubercle, B/L, No pain: posterior/superior heel, achilles bursa/tendon, sinus tarsi, peroneals, or with lateral heel compression; no limited STJ ROM, calor, or ecchymosis. O rthopedic: MUSCLE STRENGTH: 5 /5 all groups in a symmetrical fashion, B/L. FOOTWEAR EVALUATION: g ood condition, OT were inspected and noted to be worn, but in good condition giving proper support at the present time. N eurological: SENSORY: N eurological exam reveals intact sensorium, pain sensation normal, vibration sensation intact, pinprick sensation is normal in the lower extremities, Pt denies, anesthesia, burning, paresthesia, tingling, B/L. G eneral Examination: GENERAL APPEARANCE: R nishieals a pleasant, alert, well nourished, well-developed, well hydrated individual, who demonstrates proper attention to hygiene/body habitus, and is in no acute distress, Pt serves as own historian for office visit today. ORIENTED: p erson, place, and time. V ascular: DP PULSES (B): 3 /4, B/L. PT PULSES (B): 3 /4, B/L. CAPILLARY FILL TIME: i mmediate, all digits, B/L. TROPHIC CONDITION-TEXTURE/ELASTICITY/TURGOR/HAIR GROWTH (B):?normal, B/L. TEMPERTURE GRADIENT (C): n ormal, warm to cool, proximal to distal, B/L, B/L. PIGMENTATION: n ormal, B/L. EDEMA (C): a bsent, B/L. * Physical Examination: L 1929 Nightsplint AFO: Application of static AFO, including soft interface material, adjustable for fit/ positioning/ pressure reduction, may be used for minimal ambulation, prefabricated, including fitting and adjustment: T he patients condition requires a pneumatic posterior ankle/foot orthotic brace to immobilize, and thereby stabilize, their musculoskeletal pathology. The pneumatic component of the boot will provide adjustable foot support. The pneumatic posterior ankle/foot orthotic brace will permit the patient to inspect the extremity for signs of ischemia or any wound development. A ( Small, ) pneumatic posterior ankle/foot orthotic brace size was fitted to the patient. The pneumatic bladder was inflated to provide proper foot support. The fit was inspected for comfort while the patient was wearing the device and noted to be proper in length and width without rubbing, slippage, or tension. The straps were adjusted to the appropriate length and tightness. The patient was provided with written instructions on maintenance of the device, skin integrity inspection, and warranty information provided by the sports editor, The patient demonstrated their ability to independently apply and remove the device as well as adjust the amount of pneumatic support available to tolerance. It is uncertain how long the patient may require the device as that will be dependent on the individual healing process as confirmed by subsequent complaint response to this treatment, physical exam findings, and serial x-rays (if taken). The patient was instructed on what to do if the device causes pain, discomfort, skin irritation, redness, and is to immediately report this to the office, The patient signed an authorization for payment and benefits. The patient also received a copy of the current supplier standards and our office compliance protocol. All patient questions regarding the use of the device were addressed and answered to their verbally confirmed satisfaction. Patient signed confirmation form indicating receipt of this DME device, Left. Assessment: * Assessment: 1. P ain in right foot - M79.671 2 . P lantar fasciitis, bilateral - M72.2 (Primary) S pecify :Acute problem, Complicated w/ Multiple Tx Options(4) 3 . C alcaneal spur, right foot - M77.31 4 . P ain in left foot - M79.672 5 . C alcaneal spur, left foot - M77.32 Plan: * Treatment: * Procedure Codes: L 1930 AFO PLASTIC/OTH MATERIAL PREFAB * Preventive Medicine: Counseling: D iscussion: - 14: Office or other outpatient visit for the [...] have encouraged the patient to call the office. B ioMech.: I discussed the Pts foot biomechanics with them and how it relates to their problem. H eel pain: F ASCIITIS: I explained to the patient the possible [...] Interfil injection therapy, as well as surgical [place]/Endoscopic Fasciitomy surgical procedures if needed. Recommendations were made to limit barefoot walking, eliminate wearing nonsupportive shoegear (i.e. flip- flops or sandals, or a shoe with an [...] the various treatment options were dispensed and reviewed. P .R.I.C.E.: T he patient was counseled on the use of P.R.I.C.E. and NSAIDS (if well tolerated) to aid in the recovery from their painful condition. Stressed the importance of rest to help the foot improve and heal. P hysical Therapy: D iscussed the potential short and filler leaf cutter long benefits of physical therapy including pain relief, improved function for activity of daily life, return to exercise, increased quality of life. We discussed the usual/customary PT treatment schedule of 2-3 times per week for 4 weeks to as much as 12 weeks depending on insurance approval/coverage. We discussed various PT treatment modalities including, but not limited to, gate training, muscular stabilization, stretching, deep tissue therapeutic massage, ultrasound, TENS, iontophoresis, fluidotherapy, laser therapy, hydrotherapy, contrast ice/heat bath, and passive as well as active ROM exercises. Questions re: PT including visit amounts, rates of success, and goals were answered to the patient's satisfaction. The patient verbally confirmed the medical necessity and use of PT therapy treatment for their MSK condition, Pt defers on therapy at this time. S teriod Injection: I explained that a steroid and local anesthetic injections are administered to relieve pain and inflammation and thereby meant to improve function. I explained the possible complications including but not limited to signs/symptoms of steroid flare, infection, bruising, atrophy, discoloration of skin, change/deviation in toe position, and that additional injections may be necessary, cortisone post- injection informative educational handout was dispensed to and reviewed with the patient, Pt defers injection today. S tretching Exercises: S tretching and deep tissue massage exercises for the patients injury/diagnosis were discussed and demonstrated, Handouts were also given. Screening/Special Tests: F all Risk Screening: N o falls in the past year F ALLS: Screening for Future Fall Risk Have you had any falls with injury in the past year? N o * Follow Up: 2 Months * Images: * Sign off status: Completed true * Provider: Sada Tatum, DPM Date: 04/16/2025 Generated for Vik pierre/Dario/Ana Rosa on: 04/17/2025 09:33 AM EDT History and Physical Notes * HPI (History of Present Illness) Category Sub-Category Detail Notes Category Not es Heel pain Duration: , more than six months Nature: aching, throbbing, t enderness Location: Proximal plantar asp ect of Heel , B/L, LEFT greater than Right Onset/Cause: gradual Aggravated: standing, walking, w alking first thing in the morning/after rest, pt states she walks twice a day Course: , worse Treatments: rest/alter normal da bola activity, change in shoes, gel cushions, stretching, custom orthoses, Topical CBD, THC cream Physical Examination Category Sub-Category Detail Notes Section Note s L1930 Nightsplint AFO Application of static AFO, including soft interface material, adjustable for fit/ positioning/ pressure reduction, may be used for minimal ambulation, prefabricated, including fitting and adjustment: The patients condition requires a pneumatic posterior ankle/foot orthotic brace to immobilize, and thereby stabilize, their musculoskeletal pathology. The pneumatic component of the boot will provide adjustable foot support. The pneumatic posterior ankle/foot orthotic brace will permit the patient to inspect the extremity for signs of ischemia or any wound development. A ( Small, ) pneumatic posterior ankle/foot orthotic brace size was fitted to the patient. The pneumatic bladder was inflated to provide proper foot support. The fit was inspected for comfort while the patient was wearing the device and noted to be proper in length and width without rubbing, slippage, or tension. The straps were adjusted to the appropriate length and tightness. The patient was provided with written instructions on maintenance of the device, skin integrity inspection, and warranty information provided by the sports editor, The patient demonstrated their ability to independently apply and remove the device as well as adjust the amount of pneumatic support available to tolerance. It is uncertain how long the patient may require the device as that will be dependent on the individual healing process as confirmed by subsequent complaint response to this treatment, physical exam findings, and serial x-rays (if taken). The patient was instructed on what to do if the device causes pain, discomfort, skin irritation, redness, and is to immediately report this to the office, The patient signed an authorization for payment and benefits. The patient also received a copy of the current supplier standards and our office compliance protocol. All patient questions regarding the use of the device were addressed and answered to their verbally confirmed satisfaction. Patient signed confirmation form indicating receipt of this DME device, Left Examination Category Sub-Category Detail Notes Category Not es Heel Pain INSPECTION REVEALS: LEFT greater than Right, Pain on Palpation to Plantar Fascia med. [...] Pt denies, anesthesia, burning, paresthesia, tingling, B/L Orthopedic FOOTWEAR EVALUATION: good condit ion, OT were inspected and noted to be worn, but in good condition giving proper support at the present time MUSCLE STRENGTH: 5/5 all groups in a [...]
--- NOTE | 2025-04-17 09:12 | A.OFFVIS_ITS ---
Vital Signs 04/17/25 09:13 Height 5 ft 2 in Weight 116 lb 2 oz BMI 21.2 BP 124/64 Blood Pressure Location Rt brachial Position Sitting Pulse 75 Pulse Source Pulse Oximeter Pulse Oximetry (%) 95 Oxygen Delivery Method Room Air Intake Visit Reasons: 3 mo follow up Intake Note: Patient presents follow up RLS. Labs/Compliance in chart(81/90 days, >=4hrs-48%, Average usage- 3hr 30min, Med pressure-6.1, Med leaks- 0.0, AHI-0.6). patient interested in increasing melatonin(patch?) Podiatry wants to put her on methaylprednison(DX with platar fasitis Allergies erythromycin base Allergy (Verified 04/17/25 09:15) Unknown Seasonal Allergies Allergy (Verified 04/17/25 09:15) Sneezing HPI Comments Details: 74 year old female with history of abnormal sleep behavior follow up for review of PSG. PSG was significant for Mild Sleep Apnea AHI was 8 and REM AHI was 34, with Oxy gen Kemal to 81%. She had frequent limb movements leading to periodic arousals. She was started on cPAP [id number]. She is feeling refreshed and now experiences deeper stages of sleep. Some nights she still struggles with the thrashing behavior, however overall she says sleep feels better. Once a week she still goes into the other bedroom to stretch and uses the cooling gels and it helps to calm the legs however still continues to ruminate and turning off her thoughts is challenging. She is seeing a research development manager for plantar fasciitis and used her orthotics when she goes on her walks twice per day. Her l. foot is usually irritated, she stumbles and can not put weight on her foot. She is considering cortisone shots quarterly, in the past her mood declined she became irritable due to methylp rednisone and is a bit hesitant to move forward with this therapy. She still has RLS symptoms. Labs reviewed with patient today. PMH: She recently had diverticulitis 3 weeks ago, was started on antibiotics and now she is doing much better. She has not been waking up and yelling at her since starting the CPAP therapy she sleeps very peacefully through the night and although the mask is not very pleasant, she is able to tolerate the noise and straps. Bill her also is pleased with the diminished snoring and her ability to sleep through the night. She can sleep on her side and on her back easily. She has a good diet, exercises daily, meditates and sees a medical therapist once a month. Though she denies any major stressors, her 33 year old nephew due to metatastic lung cancer in March 2024. RLS: She says the buzzing bilaterally in her legs gets better if she stretches. She c/o numbness, tingling and an uncomfortable sensation when she goes to bed around 10pm. She denies electric shock-like sensation, cramps or spasms and does not take any otc meds to fall asleep, including melatonin. She denies falls, injuries, sciatica or MVA. She has Osteoporosis which has improved, per Litharge Supervisor she was taking Risedronate- now she has Osteopenia and occasional arthritic joint pains. [facility] Medical History Plantar fasciitis Sessile colonic polyp Recurrent sinusitis Osteoporosis Hyperlipidemia History of shingles Diverticulosis large intestine w/o perforation or abscess w/bleeding Deviated septum Chondromalacia of right knee Benign positional vertigo Arthritis of right hand Surgical History H/O colonoscopy S/P ACL repair Status post correction of deviated nasal septum H/O medial meniscus repair of right knee Family History Mother Breast cancer Maternal Aunt Breast cancer Brother Hemochromatosis Family/Other Tongue cancer Social History Household Members: Spouse Alcohol intake: current Patient Tobacco Use Status: Never used Tobacco service: No Current occupational status: retired Physical Exam Vital Signs: Last Vital Signs Pulse 75 04/17/25 09:13 BP 124/64 04/17/25 09:13 Pulse Ox 95 04/17/25 09:13 Oxygen Delivery Method Room Air 04/17/25 09:13 BMI result Body Mass Index 21.2 Const General: cooperative, comfortable and no acute distress Nutritional Appearance: average body habitus and thin Orientation/consciousness: patient oriented x3 Eyes Pupils: Equal, round and reactive pupils present Neck Neck: Yes other (ROM is good) Resp Effort & Inspection: normal respiratory effort and able to speak in complete sentences Neuro General: patient oriented x3 and moves all extremities Cranial nerves: Yes CN's II-XII intact bilaterally, Yes Facial sensation intact/muscles of mastication intact, Yes Equal, round and reactive pupils present, Yes Normal accommodation reflex present, Yes Bilaterally intact EOM present, Yes Nystagmus not present, Yes Normal facial strength present, Yes Midl ine tongue present, Yes Ability to bilaterally rotate head present and Yes Ability to bilaterally elevate shoulders present Cognition (Neuro): normal cognition Gait exam (Neuro): Normal gait present Motor exam (neuro): 5/5 motor strength present throughout, Pronator motor function not present, no tremor noted, Normal motor muscle tone present throughout and Abnormal motor strength present (RLE weaker than LLE) Psych Appearance: grossly normal Mental Status: mental status grossly normal Affect: normal affect Thought process: Normal thought process present Thought content: Normal thought content present Results Reviewed Results Reviewed: JAYLEN compliance report 01/2025 -03/2025 total use is 81/90 and >4 hours avg use is 3 hours 30min Med press 6.1cmH20 and leaks 0.0, AHI is 0.6/hr Assessment & Plan Assessment & Plan (1) JAYLEN on CPAP: Comment: mild jaylen on cpap and compliant Code(s): G47.33 - Obstructive sleep apnea (adult) (pediatric) Category: Medical (2) RLS (restless legs syndrome): Code(s): G25.81 - Restless legs syndrome Category: Medical (3) Periodic limb movements of sleep: Comment: increase melatonin Code(s): G47.61 - Periodic limb movement disorder Category: Medical Plan JAYLEN she is compliant with cpap therapy, continue use as pt feels refreshed sleep. Labs reviewed with patient ferritin is still high, she has an infectious process with diverticulosis. PLMD/ RLS try using Magnilife otc, CBC oil, Bengay or [place] balm cream, may use capsicum pathces on the plantar surface of feet for burning pain with plantar fasciitis, and use a cold frozen water bottle to roll with l. foot for pain relief. Continue to limit walking, continue using orthotics and discuss corticosteroid injections with pcp/ pain management if unable to sleep at night. Will consider Dopamine agonist if patient is amenable in the future. She had terrible s/e to gabapentin, in the past. May trial her on Ropinorole in the future. Will increased melatonin daily at bedtime to 5mg po 3x a week, and 10mg po every other night and f/u for effectiveness. Melatonin Patches can deliver melatonin slower, help fall asleep faster and stay asleep longer, as it is gradually released into the blood stream unlike oral melatonin. Try various available patches through your pharmacy otc or [employer]. Will f/u in 6 months for compliance of CPAP. Medications: Refilled melatonin may take one tablet by mouth at bedtime for sleep. 5 mg PO DAILY 90 tabs 1RF G47.9 - Sleep disorder, unspecified, R53.83 - Other fatigue Patient Instructions: Sleep Hygiene provided: set a scheduled bedtime and wake time to help regulate the circadian rhythm and balance the release of pituitary hormones. Sleep in a dark room, temperatures below 68 degrees, and no devices n bed. Limit caffeinated products 6 hours prior to bed, and limit fluids 2-4 hours prior to bed. Gentle night yoga, diffusing essential oils, and playing soft music can be relaxing. Coding Level of Care Code Est Pt Level 4 (95326) Diagnoses JAYLEN on CPAP G47.33 RLS (restless legs syndrome) G25.81 Periodic limb movements of sleep G47.61 Time Spent (min) 45 Comment improving jaylen and PLMD
[2025-04-17 09:13] VITALS: BP 124/64; PULSE 75; O2SAT 95; BMI 21.2
== END 2025-04-17 10:01 | disposition home or self-care (01) ==
PROVIDERS: PCP Family Medicine; Visit Provider Physician Assistant Medical
DX: G47.33 Obstructive sleep apnea (adult) (pediatric) (principal); G25.81 Restless legs syndrome; G47.61 Periodic limb movement disorder
CPT/HCPCS: 99214

== ENCOUNTER → 2025-04-17 09:06 | Outpatient (BNVA) | payer MEDICARE, SELFPAY | PROVIDERS: PCP Family Medicine; Visit Provider Physician Assistant Medical | DX: G47.33 Obstructive sleep apnea (adult) (pediatric) (principal); G25.81 Restless legs syndrome; G47.61 Periodic limb movement disorder | CPT/HCPCS: 99212 ==

== ENCOUNTER 2025-06-14 07:32 | Day surgery (SDC) | payer MEDICARE, SELFPAY ==
--- OUTSIDE RECORDS SUMMARY | 2025-05-02 14:08 | XMS_ITS | Patient Health Record ---
Author Organization [facility] [place] Address [address] [place] [address] Care Team Providers Care Wind Operations Supervisor Name Role Phone Chip Lovell MD Primary Care Provider Gene Tatum Flora Unavailable [phone] Trent Andrea Unavailable [phone] Allergies Allergen (clinical drug ingredient) Drug/Non Drug Allergy documented on EMR Reaction Allergy Type Onset Date Status erythromycin Erythromycin diarrhea/vomiti ng Drug Allergy Active Reason For Referral No Information Medications Medication SIG (Take, Route, Frequency, Duration) Notes Start Date End Date Status Melatonin 5 MG 1 tablet in the even ing Orally Once a day Active Multivitamin Active Vitamin D Active Calcium Active Vitamin B6 Active Custom Orthotics as directed 04/30/2021 Not-Taking Risedronate Sodium 35 MG TAKE 1 TABLET B Y MOUTH EVERY WEEK WITH 6-8 OUNCES OF PLAIN WATER, AT LEAST 30 MINUTES BEFORE FIRST FOOD, BEVERAGE, OR MEDICATION OF THE DAY Oral; Duration: 84 Not-Taking Night Splint AFO - L1930 as directed 04/16/2025 Active Medrol salvador 4mg as directed orally a s directed; Duration: 6 days 04/16/2025 Active Immunizations Vaccine Route Administration Date Status Comme nts Influenza Unknown 05/20/2024 Administered COVID-19 Pfizer BioNTech Vaccine Unknown 12/05/2020 Adm inistered 11/14/20 Social History Tobacco Use: Social History [...] Status Risk Notes Problem Plantar fascial fibromatosis (M72.2) Active confirmed Problem Plantar fasciitis, bilateral (M72.2) Active confirmed Vital Signs Heart Rate 56 /min 11/20/2024 Blood pressure diastolic 70 mm Hg 04/16/2025 Height 5ft2in in 04/16/2025 Blood pressure systolic 121 mm Hg 04/16/2025 Weight 115 lbs 04/16/2025 BMI 21.03 kg/m2 04/16/2025 Encounters Encounter Location Date Provider Diagnosis [address] [address] 10/15/2024 Flora Perica Pain in right foot M79.671 ; Plantar fasciitis, bilateral M72.2 ; Calcaneal spur, right foot M77.31 ; Other myositis of right foot M60.871 ; Bursitis of right foot M77.51 ; Pain in left foot M79.672 ; Calcaneal spur, left foot M77.32 ; Other myositis of left foot M60.872 and Bursitis of left foot M77.[facility] [address] 11/20/2024 Flora Perica Pain in right foot M79.671 ; Plantar fasciitis, bilateral M72.2 ; Calcaneal spur, right foot M77.31 ; Pain in left foot M79.672 and Calcaneal spur, left foot M77.[address] [address] 04/16/2025 Flora Perica Pain in right foot M79.671 ; Plantar fasciitis, bilateral M72.2 ; Calcaneal spur, right foot M77.31 ; Pain in left foot M79.672 and Calcaneal spur, left foot M77.32 [facility] [address] [address] 07/31/2024 Trent Andrea [facility] [address] [address] 10/03/2024 Flora Perica [facility] [address] [address] 10/15/2024 Flora Perica [facility] [address] [address] 04/15/2025 Flora Perica [facility] [address] [address] 04/16/2025 Flora Tatum Assessments Encounter Date Diagnosis (ICD Code) Assessment Notes Treatment Notes Treatment Clinical Notes Section Notes 10/15/2024 Pain in right foot (ICD-10 - M79.671) 11/20/2024 Pain in right foot (ICD-10 - M79.671) 11/20/2024 Plantar fasciitis, bilateral (ICD-10 - M72.2) 04/16/2025 Pain in right foot (ICD-10 - M79.671) 04/16/2025 Plantar fasciitis, bilateral (ICD-10 - M72.2) 04/16/2025 Calcaneal spur, right foot (ICD-10 - M77.31) 10/15/2024 Plantar fasciitis, bilateral (ICD-10 - M72.2) Patient Educated with: HEEL CORD STRETCHES.pdf (HEEL CORD STRETCHES.pdf) Patient Educated with: RICE THERAPY.pdf (RICE THERAPY.pdf) 11/20/2024 Calcaneal spur, right foot (ICD-10 - M77.31) 10/15/2024 Calcaneal spur, right foot (ICD-10 - M77.31) 11/20/2024 Pain in left foot (ICD-10 - M79.672) 04/16/2025 Pain in left foot (ICD-10 - M79.672) 04/16/2025 Calcaneal spur, left foot (ICD-10 - M77.32) 11/20/2024 Calcaneal spur, left foot (ICD-10 - [...] Foot, right 3V 10/15/2024 Next Appt Details Provider Name:Flora desai, 08/09/2025 09:00:00 AM, [address] [place], [address], Insurance Providers Payer Name Payer Address Payer Phone Subscriber Number Group Number Insured Name Patient Relationship to Insured Coverage Start Date Coverage End Date [employer] Medicare [id number] [address] [address] [place] [address] [id number] Caitlin Vides Self - patient is the insured Medical (General) History Medical History History ICD Code Diverticulosis Headaches/Migraines Osteoporosis Sinus conditions Mumps Chicken pox covid-19 Measles sleep and movement disorder Surgical History Surgery Date(Month/Year) A.C.L. Repair Meniscus repair
--- NOTE | 2025-06-12 11:45 | HO.ANESPROP2 ---
Documented by User: Melanie Coughlin NP 06/12/25 11:46 HPI - Anesthesia Eval Consult details Narrative: 74yo F for Colonoscopy PMFSH Active Problems Active Problems: All Active Problems JAYLEN on CPAP (Acute) Elevated ferritin level (Acute) Periodic limb movements of sleep (Acute) RLS (restless legs syndrome) (Acute) Fatigue due to sleep pattern disturbance (Acute) Past Medical History Medical History Plantar fasciitis Sessile colonic polyp Recurrent sinusitis Osteoporosis Hyperlipidemia History of shingles Diverticulosis large intestine w/o perforation or abscess w/bleeding Deviated septum Chondromalacia of right knee Benign positional vertigo Arthritis of right hand Family History Family History Mother Breast cancer Maternal Aunt Breast cancer Brother Hemochromatosis Family/Other Tongue cancer Surgical History Surgical History (Updated 06/14/25 @ 07:38 by Melissa Thompson RN) H/O colonoscopy S/P ACL repair Status post correction of deviated nasal septum H/O medial meniscus repair of right knee Social History Social History Household Members: Spouse Alcohol intake: current Patient Tobacco Use Status: Never used Tobacco Use of substances other than those prescribed or required for medical reasons: No Advance Directives: No Advance Directives Information Provided: Yes Patient : No : No Poor oral hygiene: No service: No Current occupational status: retired Meds Allergies Allergy/AdvReac Type Severity Reaction Status Date / Time erythromycin base Allergy Diarrhea Verified 06/14/25 07:38 Seasonal Allergies Allergy Sneezing Verified 04/17/25 09:15 Home Medications ?Medication ?Instructions ?Recorded ?Confirmed ?Last Taken ?Type albuterol sulfate 90 mcg/actuation 2 puff inhalation Q6H PRN wheezing 10/02/24 06/12/25 Unknown History aerosol inhaler (Ventolin HFA) calcium 600 mg (as 1 cap PO DAILY 10/02/24 06/12/25 Unknown History carbonate)-vitamin D3 5 mcg (200 unit) capsule (Calcium 600 + D(3)) cholecalciferol (vitamin D3) 25 25 mcg PO DAILY 10/02/24 06/12/25 Unknown History mcg (1,000 unit) tablet pyridoxine (vitamin B6) 100 mg 100 mg PO DAILY 01/01/25 06/12/25 Unknown History tablet methylcellulose (laxative) 500 mg 500 mg PO BID 01/23/25 06/12/25 Unknown History tablet (Citrucel) Assessment and Plan Assessment Anesthesia Assessment: Chart Reviewed Documented by User: Heide Padilla MD 06/14/25 08:17 [facility] Past Medical History Medical History Plantar fasciitis Sessile colonic polyp Recurrent sinusitis Osteoporosis Hyperlipidemia History of shingles Diverticulosis large intestine w/o perforation or abscess w/bleeding Deviated septum Chondromalacia of right knee Benign positional vertigo Arthritis of right hand Family History Family History Mother Breast cancer Maternal Aunt Breast cancer Brother Hemochromatosis Family/Other Tongue cancer Family history of problems with anesthesia: No Surgical History Surgical History (Updated 06/14/25 @ 07:38 by Melissa Thompson RN) H/O colonoscopy S/P ACL repair Status post correction of deviated nasal septum H/O medial meniscus repair of right knee History of Problems with Anesthesia: No Social History Social History Household Members: Spouse Alcohol intake: current Patient Tobacco Use Status: Never used Tobacco Use of substances other than those prescribed or required for medical reasons: No Advance Directives: No Advance Directives Information Provided: Yes Patient : No : No Poor oral hygiene: No service: No Current occupational status: retired Meds Allergies Allergy/AdvReac Type Severity Reaction Status Date / Time erythromycin base Allergy Diarrhea Verified 06/14/25 07:38 Seasonal Allergies Allergy Sneezing Verified 04/17/25 09:15 Home Medications ?Medication ?Instructions ?Recorded ?Confirmed ?Last Taken ?Type albuterol sulfate 90 mcg/actuation 2 puff inhalation Q6H PRN wheezing 10/02/24 06/12/25 Unknown History aerosol inhaler (Ventolin HFA) calcium 600 mg (as 1 cap PO DAILY 10/02/24 06/12/25 Unknown History carbonate)-vitamin D3 5 mcg (200 unit) capsule (Calcium 600 + D(3)) cholecalciferol (vitamin D3) 25 25 mcg PO DAILY 10/02/24 06/12/25 Unknown History mcg (1,000 unit) tablet pyridoxine (vitamin B6) 100 mg 100 mg PO DAILY 01/01/25 06/12/25 Unknown History tablet methylcellulose (laxative) 500 mg 500 mg PO BID 01/23/25 06/12/25 Unknown History tablet (Citrucel) Exam Airway Mallampati Class: II TM Dist: >3cm Neck ROM: Full Heart: rrr Lungs: cta Assessment and Plan Assessment Anesthesia Assessment: Anesthesia Plan Discussed Final Anesthetic Review Family History of Problems with Anesthesia: No History of Problems with Anesthesia: No NPO: Yes ASA Class: II Final Preanesthetic Review: No Changes in Pt Med Stat, Meds/Allgs Chart Reviewed and Consent Obtained/Reviewed Patient Risk: Low Procedure Risk: Low Anesthetic Plan Anesthetic Plan: MAC: Disposition: Standard PACU
[2025-06-12 14:44] VITALS: BMI 21.2
--- NOTE | 2025-06-14 07:26 | MHC.SHP ---
Pre-Procedural Eval Section A - 24 Hr Update-Section A only Date of Service: 06/14/25 The patient is an INPATIENT: No The patient has been examined within 24 hours of the surgical procedure. The History & Physical has been completed within 30 days and I have reviewed it.: No Section B - Complete if H&P > 30 days Chief Complaint: screening Relevant Family History (Specify if Yes): No Relevant Social History: None Present Medications: see Short Stay Collaborative assessment Medical History: Significant History (Sessile colonic polyp Recurrent sinusitis Osteoporosis Hyperlipidemia History of shingles Diverticulosis large intestine w/o perforation or abscess w/bleeding Deviated septum Chondromalacia of right knee Benign positional vertigo Arthritis of right hand) History of Previous Operations: Relevant previous surgery/procedure and date(s) (H/O colonoscopy S/P ACL repair Status post correction of deviated nasal septum H/O medial meniscus repair of right knee) Allergies: Allergies Allergy/AdvReac Type Severity Reaction Status Date / Time erythromycin base Allergy Unknown Verified 04/17/25 09:15 Seasonal Allergies Allergy Sneezing Verified 04/17/25 09:15 Review of Systems Sugical H&P ROS: Negative: Constitution, Cardiovascular, Respiratory and Gastrointestinal Exam Surgical H&P Exam: Normal: Heart, Normal: Lungs, Normal: Extremities and Normal: Abdomen Plan Diagnosis/Plan: Unchanged I have reviewed the history and physical and performed a pertinent physical examination on my patient. No changes have occurred unless specified. Time Spent With Patient Time: Total time managing care of this patient today ____ minutes.
[2025-06-14 07:42] VITALS: BMI 21.2
[2025-06-14 07:44] VITALS: BP 140/70; PULSE 59; RESP 16; TEMP 36; O2SAT 98
[2025-06-14] MEDS: Lactated Ringers 1,000 ML 100 ML IVCONT (07:59)
[2025-06-14 09:15] VITALS: BP 109/61; PULSE 81; RESP 16; TEMP 36.1; O2SAT 98
--- NOTE | 2025-06-14 09:15 | HO.OPN-COLON ---
Colonoscopy Operative Note Operative Note Date of Service: 06/14/25 Narrative: COLONOSCOPY TILL CECUM WITH BIOPSIES, SNARE POLYPECTOMY AND HEMOCLIP PLACEMENT Pre-op diagnosis: Surveillance for colon polyps. Post-op diagnosis:? Colon polyps, Diverticulosis, hemorrhoids Endoscopist:? Marguerite Krishna MD Anesthesia:?MAC Consent: Indications for the procedure and potential complications of bleeding, perforation, reaction to medications and missed diagnosis were discussed with the patient and informed consent was obtained. Instrument: Olympus CF H 190 L variable stiffness adult colonoscope Monitoring: Vital signs and clinical assessment, intermittent blood pressure monitoring, continuous EKG monitoring, Pulse oximetry and Carbon Dioxide monitoring were done throughout the procedure. Please see anesthesia flowsheet. Colon withdrawl time was 20 minutes. Procedure: The patient was placed in the left lateral decubitis position and pre-procedure medications were administered. After a digital rectal examination of the ano-rectum, the video colonoscope was inserted into the rectum and advanced through the colon to the cecum. The colonoscope was slowly withdrawn in a retrograde panoramic fashion and the colon mucosa was carefully examined including a retroflexed view of the rectum. Findings and interventions are described below. Procedure Difficulty: Colon was long and redundant and there was recurrent loop formation. There was luminal narrowing in the sigmoid colon at 30 cm due to severe diverticulosis which was navigated with some difficulty. Patient was placed in the supine position and LLQ pressure was applied to intubate the cecum Findings: Terminal Ileum: Not evaluated Cecum: A 10-12 mm sessile polyp - removed with a stiff hot snare. Polypectomy site was closed with 1 hemoclip. Ascending Colon: Moderate diverticulosis throughout the entire colon Transverse Colon: Moderate diverticulosis throughout the entire colon Descending Colon: Moderate diverticulosis throughout the entire colon Sigmoid Colon: Severe diverticulosis with luminal narrowing Rectum: A 3-4 mm diminutive appearing polyp - removed with a cold biopsy Ano-rectum: Moderate internal hemorrhoids Colon preparation: Excellent, after some irrigation. [place] Bowel Preparation Scale Right colon; 3 Transverse colon: 3 Left colon; 3 (0 = Unprepared colon segment with mucosa not seen due to solid stool that cannot be cleared. 1 = Portion of mucosa of the colon segment seen, but other areas of the colon segment not well seen due to staining, residual stool and/or opaque liquid. 2 = Minor amount of residual staining, small fragments of stool and/or opaque liquid, but mucosa of colon segment seen well. 3 = Entire mucosa of colon segment seen well with no residual staining, small fragments of stool or opaque liquid) Impression and Post Procedure Diagnosis: Colonoscopy Findings: Two small to medium sized polyps were removed Moderate to severe diverticulosis seen in the entire colon Moderate hemorrhoids on retroflexed exam. Plan: I will send a letter with biopsy results. Repeat colonoscopy in 3 years if polyps are adenomatous and can discontinue colon cancer screening if polyps are hyperplastic. Above findings were reviewed with the patient and relevant handouts were given and the discharge area.
[2025-06-14 09:30] VITALS: BP 119/56; PULSE 62; RESP 20; TEMP 36.1; O2SAT 97
== END 2025-06-14 10:28 | disposition home or self-care (01) ==
PROVIDERS: PCP Family Medicine; Visit Provider Internal Medicine Gastroenterology
PROC: 0DJD8ZZ Inspection of Lower Intestinal Tract, Via Natural or Artificial Opening Endoscopic (ICD-10-PCS; CPT 45378; principal; 2025-06-14 08:30)
DX: Z12.11 Encounter for screening for malignant neoplasm of colon (principal); D12.0 Benign neoplasm of cecum; K62.1 Rectal polyp; K57.30 Diverticulosis of large intestine without perforation or abscess without bleeding; E78.5 Hyperlipidemia, unspecified; M81.0 Age-related osteoporosis without current pathological fracture; M19.041 Primary osteoarthritis, right hand; M72.2 Plantar fascial fibromatosis; H81.10 Benign paroxysmal vertigo, unspecified ear; G47.33 Obstructive sleep apnea (adult) (pediatric); G25.81 Restless legs syndrome; G47.61 Periodic limb movement disorder; Z98.890 Other specified postprocedural states; Z88.1 Allergy status to other antibiotic agents
CPT/HCPCS: 45385; 45380; 88305; J2003; J2405; J2704

== ENCOUNTER → 2025-06-14 07:32 | Outpatient (BNV) | payer MEDICARE, SELFPAY | PROVIDERS: PCP Family Medicine; Visit Provider Internal Medicine Gastroenterology | DX: Z12.11 Encounter for screening for malignant neoplasm of colon (principal); D12.0 Benign neoplasm of cecum; D12.8 Benign neoplasm of rectum; K57.90 Diverticulosis of intestine, part unspecified, without perforation or abscess without bleeding; K64.8 Other hemorrhoids | CPT/HCPCS: 45380; 45385 ==